=== PATIENT | female | born 1970 | race Caucasian/White ===

== ENCOUNTER 2016-08-15 19:37 | Emergency (ER) | payer MEDICAID ==
[~2016-08-15] VITALS: Ht 165.1 cm; Wt 96.0 kg
[~2016-08-15 19:37] MED LIST: ALBU6.7H2 IH; BUSP30TA2 PO; CITA20TA19 PO; CYCL5TAB PO; FAMO40TA7 PO; FERR-63 PO; LISI-604 PO; LORA10TA7 PO; OLAN10TA3 PO
[2016-08-16] MEDS ORDERED: KETOROLAC 30MG/ML VIAL IV STA (01:52)
[2016-08-16] MEDS ORDERED: MAGNESIUM/ALUMINUM HYDROXIDE/SIMETHICONE 30ML UDC PO STA (01:52)
[2016-08-16] MEDS ORDERED: VISCOUS LIDOCAINE 2% 15 ML UDC PO STA (01:52)
[2016-08-16] MEDS ORDERED: DICYCLOMINE 10 MG/5 ML ORAL SYR PO STA (01:52)
[2016-08-16] MEDS ORDERED: SODIUM CHLORIDE 0.9% 500 ML IV ONE (02:00)
[2016-08-16] MEDS ORDERED: LORAZEPAM 2MG/ML CPJ IV ONE (02:30)
[2016-08-16] MEDS ORDERED: ONDANSETRON HCL 4MG/2ML VIAL IV ONE (02:30)
[2016-08-16 02:31] LABS: CLARITY URINE CLOUDY (CLEAR); COLOR URINE ORANGE (YELLOW); GLUCOSE URINE NEGATIVE (NEGATIVE); KETONES URINE TRACE (NEGATIVE); LEUKOCYTE ESTERASE URINE 1+ (NEGATIVE); NITRITE URINE POSITIVE (NEGATIVE); OCCULT BLOOD URINE NEGATIVE (NEGATIVE); PROTEIN URINE 1+ (NEGATIVE)
[2016-08-16 02:36] LABS: CHLORIDE 100 mEq/L (98-107); INDEX HEMOLYSI 1 (1-3); INDEX ICTERIC 1 (1-4); INDEX LIPEMIC 1 (1-3)
[2016-08-16 02:43] LABS: BASOPHILS % 1.1 % (0.0-2.0); EOSINOPHILS % 1.2 % (0.0-5.0); HEMATOCRIT. 27.7 % (36.0-48.0); HEMOGLOBIN. 8.8 g/dL (12.0-16.0); LYMPHOCYTES % 22.4 % (20.0-50.0); MEAN CORPUSCULAR HEMOGLOBIN 27.7 pg (28.0-32.0); MEAN CORPUSCULAR HGB CONC 31.9 g/dL (31.0-37.0); MEAN CORPUSCULAR VOLUME 86.8 fL (81.0-99.0); MEAN PLATELET VOLUME 7.1 fl (7.4-10.4); MONOCYTES % 11.2 % (2.0-8.0); NEUTROPHILS % 64.1 % (40.0-76.0); PLATELET 200 x1000/uL (130-400); RED BLOOD CELL COUNT 3.18 mill/uL (4.2-5.4); RED CELL DISTRIBUTION WIDTH 17.8 % (11.6-14.6); WHITE BLOOD COUNT 7.1 x1000/uL (4.5-11.0)
[2016-08-16 02:45] LABS: ALANINE AMINOTRANSFERASE 28 IU/L (13-61); ALBUMIN 3.1 g/dL (3.4-5.0); ANION GAP 14; CALCIUM 8.6 mg/dL (8.5-10.1); CARBON DIOXIDE 29 mEq/L (21-32); LIPASE 84 IU/L (73-393); UREA NITROGEN BLOOD 7 mg/dL (7-21); eGFR > 60 mL/min (>60)
[2016-08-16 02:57] LABS: BACTERIA URINE 2+; RBC URINE 0-2 /hpf (0-2); SQUAMOUS EPITHELIAL CELL URINE 2+ /lpf (RARE/1+)
[2016-08-16 02:58] LABS: MUCUS URINE 2+ /lpf (< = 2+)
[2016-08-16 03:00] LABS: *AMPHETAMINES SCREEN URINE NEGATIVE (NEGATIVE); *BARBITURATES SCREEN URINE NEGATIVE (NEGATIVE); *COCAINE SCREEN URINE NEGATIVE (NEGATIVE); CANNABINOID URINE SCREEN NEGATIVE (NEGATIVE); METHADONE URINE SCREEN NEGATIVE (NEGATIVE); OPIATES URINE SCREEN NEGATIVE (NEGATIVE); PHENCYCLIDINE URINE SCREEN NEGATIVE (NEGATIVE)
[2016-08-16 03:11] LABS: *BENZODIAZEPINES SCREEN URINE PRESUMTIVE POSITIVE (NEGATIVE); ECSTASY MDMA SCREEN URINE CONF.TEST INDICATED (NEGATIVE)
[2016-08-16] MEDS ORDERED: METOCLOPRAMIDE HCL 10MG/2ML VIAL IV ONE (04:30)
[2016-08-16] MEDS ORDERED: MORPHINE SULFATE 2 MG/ML CPJ (NOT FOR IM USE) IV ONE (04:30)
[2016-08-16 04:35] VITALS: BP 106/65
== END 2016-08-16 05:59 | disposition home or self-care (01) ==
LOC: ER 19:37
DX: R10.9 Unspecified abdominal pain (principal); F10.20 Alcohol dependence, uncomplicated; F10.10 Alcohol abuse, uncomplicated; F19.10 Other psychoactive substance abuse, uncomplicated; Y90.8 Blood alcohol level of 240 mg/100 ml or more; J45.909 Unspecified asthma, uncomplicated; I10 Essential (primary) hypertension; Z90.49 Acquired absence of other specified parts of digestive tract
CPT/HCPCS: 36415; 80053; 80305; 81001; 81025; 83690; 85025; 96361; 96374; 96375; 99284; J1885; J2060; J2270; J2405; J2765; J7030; J7040; Z7610

== ENCOUNTER 2016-09-10 16:31 | Emergency (ER) | payer MEDICAID ==
[~2016-09-10] VITALS: Ht 170.2 cm; Wt 75.0 kg
[2016-09-10] MEDS ORDERED: SODIUM CHLORIDE 0.9% 1,000 ML IV ONE (18:12)
[2016-09-10 18:45] LABS: BASOPHILS % 1.2 % (0.0-2.0); EOSINOPHILS % 5.1 % (0.0-5.0); HEMATOCRIT. 25.6 % (36.0-48.0); HEMOGLOBIN. 8.1 g/dL (12.0-16.0); LYMPHOCYTES % 39.9 % (20.0-50.0); MEAN CORPUSCULAR HEMOGLOBIN 25.6 pg (28.0-32.0); MEAN CORPUSCULAR HGB CONC 31.6 g/dL (31.0-37.0); MEAN CORPUSCULAR VOLUME 80.9 fL (81.0-99.0); MEAN PLATELET VOLUME 7.1 fl (7.4-10.4); MONOCYTES % 6.7 % (2.0-8.0); NEUTROPHILS % 47.1 % (40.0-76.0); PLATELET 204 x1000/uL (130-400); RED BLOOD CELL COUNT 3.16 mill/uL (4.2-5.4); RED CELL DISTRIBUTION WIDTH 19.6 % (11.6-14.6); WHITE BLOOD COUNT 6.6 x1000/uL (4.5-11.0)
[2016-09-10 18:56] LABS: ALANINE AMINOTRANSFERASE 27 IU/L (13-61); AMMONIA 36 uMol/L (<32); ANION GAP 18; CALCIUM 8.2 mg/dL (8.5-10.1); CARBON DIOXIDE 27 mEq/L (21-32); CHLORIDE 104 mEq/L (98-107); ETHANOL BLOOD 168 mg/dL; INDEX HEMOLYSI 1 (1-3); INDEX ICTERIC 1 (1-4); INDEX LIPEMIC 1 (1-3); UREA NITROGEN BLOOD 7 mg/dL (7-21)
[2016-09-10 18:58] LABS: ACETAMINOPHEN < 2 ug/mL (10-30); eGFR > 60 mL/min (>60)
[2016-09-10 19:55] LABS: *AMPHETAMINES SCREEN URINE NEGATIVE (NEGATIVE); *BARBITURATES SCREEN URINE NEGATIVE (NEGATIVE); *COCAINE SCREEN URINE NEGATIVE (NEGATIVE); CANNABINOID URINE SCREEN NEGATIVE (NEGATIVE); ECSTASY MDMA SCREEN URINE NEGATIVE (NEGATIVE); METHADONE URINE SCREEN NEGATIVE (NEGATIVE); OPIATES URINE SCREEN NEGATIVE (NEGATIVE); PHENCYCLIDINE URINE SCREEN NEGATIVE (NEGATIVE)
[2016-09-10 19:58] LABS: *BENZODIAZEPINES SCREEN URINE PRESUMTIVE POSITIVE (NEGATIVE)
[2016-09-10] MEDS ORDERED: LORAZEPAM 2MG/ML CPJ IV ONE (22:45)
[2016-09-10] MEDS ORDERED: ACETAMINOPHEN 325MG TABLET PO ONE (23:30)
[2016-09-11] MEDS ORDERED: LORAZEPAM 2MG/ML CPJ IV ONE (07:45)
[2016-09-11 11:06] VITALS: BP 149/91
== END 2016-09-11 11:19 | disposition home or self-care (01) ==
LOC: ER 17:12
DX: F10.129 Alcohol abuse with intoxication, unspecified (principal); R45.851 Suicidal ideations; R10.9 Unspecified abdominal pain; F41.9 Anxiety disorder, unspecified; F31.9 Bipolar disorder, unspecified; F14.10 Cocaine abuse, uncomplicated; F12.10 Cannabis abuse, uncomplicated; Z79.899 Other long term (current) drug therapy
CPT/HCPCS: 36415; 80053; 80305; 80307; 80329; 81025; 82140; 85025; 96361; 96374; 96376; 99284; G0482; J2060; J7030; Z7610

== ENCOUNTER 2017-01-28 10:22 | Inpatient (IN) | payer MEDICAID ==
[~2017-01-28] VITALS: Ht 152.4 cm; Wt 103.0 kg
[2017-01-28] MEDS ORDERED: MORPHINE SULFATE 4 MG/ML CPJ (NOT FOR IM USE) IV STA (13:38)
[2017-01-28] MEDS ORDERED: SODIUM CHLORIDE 0.9% 1,000 ML IV ONE (13:38)
[2017-01-28] MEDS ORDERED: ONDANSETRON HCL 4MG/2ML VIAL IV STA (13:38)
[2017-01-28 14:04] LABS: BASOPHILS % 1.1 % (0.0-2.0); EOSINOPHILS % 0.7 % (0.0-5.0); HEMATOCRIT. 25.4 % (36.0-48.0); LYMPHOCYTES % 11.5 % (20.0-50.0); MEAN CORPUSCULAR HEMOGLOBIN 24.2 pg (28.0-32.0); MEAN CORPUSCULAR VOLUME 76.5 fL (81.0-99.0); MEAN PLATELET VOLUME 6.9 fl (7.4-10.4); MONOCYTES % 7.4 % (2.0-8.0); NEUTROPHILS % 79.3 % (40.0-76.0); PLATELET 247 x1000/uL (130-400); RED BLOOD CELL COUNT 3.32 mill/uL (4.2-5.4); RED CELL DISTRIBUTION WIDTH 21.6 % (11.6-14.6)
[2017-01-28 14:09] LABS: CHLORIDE 94 mEq/L (98-107); INR 1.1; PROTHROMBIN TIME 11.7 sec (9.4-11.6)
[2017-01-28 14:11] LABS: CARBON DIOXIDE 27 mEq/L (21-32)
[2017-01-28 14:14] LABS: HCG SCREEN NEGATIVE
[2017-01-28] MEDS ORDERED: LORAZEPAM 2MG/ML CPJ IV ONE (14:30)
[2017-01-28 15:17] LABS: CLARITY URINE CLOUDY (CLEAR); COLOR URINE ORANGE (YELLOW); GLUCOSE URINE NEGATIVE (NEGATIVE); KETONES URINE NEGATIVE (NEGATIVE); LEUKOCYTE ESTERASE URINE NEGATIVE (NEGATIVE); NITRITE URINE NEGATIVE (NEGATIVE); OCCULT BLOOD URINE 3+ (NEGATIVE); PROTEIN URINE NEGATIVE (NEGATIVE); SPECIFIC GRAVITY URINE 1.011 (1.005-1.030); UROBILINOGEN URINE 0.2 E.U./dL (0.2-1.0)
[2017-01-28] MEDS ORDERED: KETOROLAC 30MG/ML VIAL IV ONE (16:00)
[2017-01-28] MEDS ORDERED: ACETAMINOPHEN 325MG TABLET PO PRN (17:30)
[2017-01-28] MEDS ORDERED: DIPHENHYDRAMINE 50MG/ML VIAL IV PRN (17:30)
[2017-01-28] MEDS ORDERED: IPRATROPIUM/ALBUTEROL 0.5-3(2.5)MG/3ML NEB INH PRN (17:30)
[2017-01-28] MEDS ORDERED: CLONIDINE 0.1MG TABLET PO PRN (17:30)
[2017-01-28] MEDS ORDERED: POTASSIUM CHLORIDE INJ 40 MEQ in DEXT 5% WATER 500 ML IV NR (18:00)
[2017-01-28 20:00] VITALS: BP 130/86
[2017-01-28 20:11] VITALS: BP 130/86
[2017-01-28] MEDS ORDERED: BACL-141 PO (20:26)
[2017-01-28] MEDS: LORAZEPAM 2MG/ML CPJ IV PRN (21:59)
[2017-01-28] MEDS: ONDANSETRON HCL 4MG/2ML VIAL IV PRN (22:00)
[2017-01-28] MEDS: MORPHINE SULFATE 4 MG/ML CPJ (NOT FOR IM USE) IV PRN (22:00)
[2017-01-28] MEDS: CHLORDIAZEPOXIDE 25MG CAPSULE PO SCH (22:01)
[2017-01-29] VITALS: BP 139/91
[2017-01-29] MEDS: ONDANSETRON HCL 4MG/2ML VIAL IV PRN ×2 (03:22→09:46)
[2017-01-29] MEDS: MORPHINE SULFATE 4 MG/ML CPJ (NOT FOR IM USE) IV PRN ×4 (03:25→20:02)
[2017-01-29] MEDS: LORAZEPAM 2MG/ML CPJ IV PRN ×3 (03:27→21:08)
[2017-01-29 04:00] VITALS: BP 139/97
[2017-01-29] MEDS: HYDROCODONE/ACETAMINOPHEN 5/325MG TABLET PO PRN ×3 (05:57→21:18)
[2017-01-29] MEDS: CHLORDIAZEPOXIDE 25MG CAPSULE PO SCH ×3 (05:57→21:07)
[2017-01-29 07:30] LABS: CARBON DIOXIDE 26 mEq/L (21-32); CHLORIDE 97 mEq/L (98-107); HDL CHOLESTEROL 15 mg/dL (40-59); LDL CHOLESTEROL 79 mg/dL (5-100)
[2017-01-29 08:00] VITALS: BP 133/67
[2017-01-29 08:00] LABS: BASOPHILS % 0.4 % (0.0-2.0); EOSINOPHILS % 1.8 % (0.0-5.0); HEMATOCRIT. 27.3 % (36.0-48.0); HEMOGLOBIN. 8.4 g/dL (12.0-16.0); LYMPHOCYTES % 11.3 % (20.0-50.0); MEAN CORPUSCULAR HEMOGLOBIN 23.8 pg (28.0-32.0); MEAN CORPUSCULAR VOLUME 77.2 fL (81.0-99.0); MEAN PLATELET VOLUME 7.6 fl (7.4-10.4); MONOCYTES % 6.4 % (2.0-8.0); NEUTROPHILS % 80.1 % (40.0-76.0); PLATELET 300 x1000/uL (130-400); RED BLOOD CELL COUNT 3.53 mill/uL (4.2-5.4); RED CELL DISTRIBUTION WIDTH 21.8 % (11.6-14.6)
[2017-01-29 12:00] VITALS: BP 130/87
[2017-01-29 16:00] VITALS: BP 152/87
[2017-01-30] VITALS: BP 150/93
[2017-01-30] MEDS: MORPHINE SULFATE 4 MG/ML CPJ (NOT FOR IM USE) IV PRN ×4 (00:50→19:42)
[2017-01-30] MEDS: LORAZEPAM 2MG/ML CPJ IV PRN ×4 (01:22→19:41)
[2017-01-30] MEDS: HYDROCODONE/ACETAMINOPHEN 5/325MG TABLET PO PRN ×4 (01:22→15:54)
[2017-01-30 04:00] VITALS: BP 135/88
[2017-01-30] MEDS: CHLORDIAZEPOXIDE 25MG CAPSULE PO SCH ×3 (05:45→22:10)
[2017-01-30] MEDS: ONDANSETRON HCL 4MG/2ML VIAL IV PRN (06:25)
[2017-01-30 07:34] LABS: BASOPHILS % 0.4 % (0.0-2.0); EOSINOPHILS % 3.1 % (0.0-5.0); HEMATOCRIT. 25.2 % (36.0-48.0); LYMPHOCYTES % 13.7 % (20.0-50.0); MEAN CORPUSCULAR HEMOGLOBIN 24.6 pg (28.0-32.0); MEAN CORPUSCULAR VOLUME 77.4 fL (81.0-99.0); MEAN PLATELET VOLUME 7.6 fl (7.4-10.4); MONOCYTES % 9.5 % (2.0-8.0); NEUTROPHILS % 73.3 % (40.0-76.0); PLATELET 231 x1000/uL (130-400); RED BLOOD CELL COUNT 3.26 mill/uL (4.2-5.4); RED CELL DISTRIBUTION WIDTH 21.3 % (11.6-14.6)
[2017-01-30 08:31] LABS: CARBON DIOXIDE 28 mEq/L (21-32); CHLORIDE 98 mEq/L (98-107)
[2017-01-30 12:11] VITALS: BP 120/72
[2017-01-30] MEDS: PANTOPRAZOLE SODIUM 40 MG/VIAL IV SCH (15:53)
[2017-01-30 16:00] VITALS: BP 130/70
[2017-01-30 20:00] VITALS: BP 136/82
[2017-01-31] VITALS: BP 125/72
[2017-01-31] MEDS: LORAZEPAM 2MG/ML CPJ IV PRN ×5 (00:44→23:58)
[2017-01-31] MEDS: MORPHINE SULFATE 4 MG/ML CPJ (NOT FOR IM USE) IV PRN ×5 (00:45→22:23)
[2017-01-31 04:00] VITALS: BP 133/78
[2017-01-31] MEDS: CHLORDIAZEPOXIDE 25MG CAPSULE PO SCH ×3 (06:14→22:13)
[2017-01-31 07:27] LABS: CHLORIDE 97 mEq/L (98-107)
[2017-01-31 07:50] LABS: CARBON DIOXIDE 26 mEq/L (21-32)
[2017-01-31 07:52] LABS: BASOPHILS % 0.8 % (0.0-2.0); EOSINOPHILS % 4.8 % (0.0-5.0); HEMATOCRIT. 23.6 % (36.0-48.0); HEMOGLOBIN. 7.3 g/dL (12.0-16.0); MEAN CORPUSCULAR HEMOGLOBIN 24.3 pg (28.0-32.0); MEAN CORPUSCULAR VOLUME 78.3 fL (81.0-99.0); MEAN PLATELET VOLUME 7.9 fl (7.4-10.4); MONOCYTES % 8.3 % (2.0-8.0); NEUTROPHILS % 68.1 % (40.0-76.0); PLATELET 216 x1000/uL (130-400); RED BLOOD CELL COUNT 3.01 mill/uL (4.2-5.4); RED CELL DISTRIBUTION WIDTH 21.3 % (11.6-14.6)
[2017-01-31 08:00] VITALS: BP 145/86
[2017-01-31] MEDS: ONDANSETRON HCL 4MG/2ML VIAL IV PRN (08:38)
[2017-01-31] MEDS: PANTOPRAZOLE SODIUM 40 MG/VIAL IV SCH (08:38)
[2017-01-31] MEDS: HYDROCODONE/ACETAMINOPHEN 5/325MG TABLET PO PRN ×3 (08:39→19:20)
[2017-01-31] MEDS ORDERED: POTASSIUM CHLORIDE 20MEQ TABLET SR PO SCH (10:15)
[2017-01-31 12:00] VITALS: BP 145/92
[2017-01-31 16:00] VITALS: BP 140/83
[2017-01-31 20:00] VITALS: BP 149/83
[2017-02-01] VITALS (11 sets, daily range): BP systolic 121–152; BP diastolic 70–97
[2017-02-01] MEDS: HYDROCODONE/ACETAMINOPHEN 5/325MG TABLET PO PRN ×2 (01:27→18:44)
[2017-02-01 07:59] LABS: BASOPHILS % 0.6 % (0.0-2.0); HEMATOCRIT. 23.3 % (36.0-48.0); HEMOGLOBIN. 7.5 g/dL (12.0-16.0); MEAN CORPUSCULAR HEMOGLOBIN 25.1 pg (28.0-32.0); MEAN CORPUSCULAR VOLUME 78.4 fL (81.0-99.0); MEAN PLATELET VOLUME 7.7 fl (7.4-10.4); MONOCYTES % 8.6 % (2.0-8.0); NEUTROPHILS % 59.8 % (40.0-76.0); PLATELET 245 x1000/uL (130-400); RED BLOOD CELL COUNT 2.98 mill/uL (4.2-5.4)
[2017-02-01 08:07] LABS: CARBON DIOXIDE 27 mEq/L (21-32); CHLORIDE 100 mEq/L (98-107)
[2017-02-01] MEDS: PANTOPRAZOLE SODIUM 40 MG/VIAL IV SCH (08:27)
[2017-02-01] MEDS: LORAZEPAM 2MG/ML CPJ IV PRN ×3 (08:28→20:49)
[2017-02-01] MEDS: MORPHINE SULFATE 4 MG/ML CPJ (NOT FOR IM USE) IV PRN ×3 (11:03→20:49)
[2017-02-01 14:16] LABS: HEMATOCRIT 23.2 % (36.0-48.0); HEMOGLOBIN 7.1 g/dL (12.0-16.0); MEAN CORPUSCULAR HEMOGLOBIN 24.3 pg (28.0-32.0); PLATELET 241 x1000/uL (130-400); RED BLOOD CELL COUNT 2.94 mill/uL (4.2-5.4); RED CELL DISTRIBUTION WIDTH 21.7 % (11.6-14.6)
[2017-02-01] MEDS: CHLORDIAZEPOXIDE 25MG CAPSULE PO SCH ×2 (14:18→21:48)
[2017-02-01] MEDS: ONDANSETRON HCL 4MG/2ML VIAL IV PRN (16:20)
[2017-02-01 19:32] LABS: CARCINO EMBRYONIC ANTIGEN 1.8 ng/ml
[2017-02-02] VITALS (10 sets, daily range): BP systolic 122–150; BP diastolic 81–90
[2017-02-02] MEDS: ONDANSETRON HCL 4MG/2ML VIAL IV PRN ×2 (01:24→09:28)
[2017-02-02] MEDS: MORPHINE SULFATE 4 MG/ML CPJ (NOT FOR IM USE) IV PRN ×3 (01:25→13:46)
[2017-02-02] MEDS: LORAZEPAM 2MG/ML CPJ IV PRN ×3 (04:06→13:45)
[2017-02-02] MEDS: HYDROCODONE/APAP 7.5/325MG 1 TAB TABLET PO PRN ×2 (04:06→11:47)
[2017-02-02 05:14] LABS: BASOPHILS % 1.1 % (0.0-2.0); EOSINOPHILS % 5.9 % (0.0-5.0); HEMATOCRIT. 28.6 % (36.0-48.0); LYMPHOCYTES % 23.6 % (20.0-50.0); MEAN CORPUSCULAR HEMOGLOBIN 25.2 pg (28.0-32.0); MEAN PLATELET VOLUME 7.2 fl (7.4-10.4); MONOCYTES % 8.2 % (2.0-8.0); NEUTROPHILS % 61.2 % (40.0-76.0); PLATELET 267 x1000/uL (130-400); RED BLOOD CELL COUNT 3.58 mill/uL (4.2-5.4); RED CELL DISTRIBUTION WIDTH 19.7 % (11.6-14.6)
[2017-02-02] MEDS: CHLORDIAZEPOXIDE 25MG CAPSULE PO SCH ×2 (05:44→13:44)
[2017-02-02 06:02] LABS: CARBON DIOXIDE 28 mEq/L (21-32); CHLORIDE 101 mEq/L (98-107)
[2017-02-02] MEDS ORDERED: FAMOTIDINE 20MG TABLET PO SCH (09:00)
== END 2017-02-02 14:30 | disposition home or self-care (01) | DRG 282 ==
LOC: ER 13:14 → 6EST 15:35 → EDBEDREQ 15:51 → ENRESERV 17:29
PROVIDERS: ADMIT Internal Medicine; ATTEND Internal Medicine
PROC: 30233N1 Transfusion of Nonautologous Red Blood Cells into Peripheral Vein, Percutaneous Approach (ICD-10-PCS; principal; 2017-02-01)
DX: K85.90 Acute pancreatitis without necrosis or infection, unspecified (principal); R65.11 Systemic inflammatory response syndrome (SIRS) of non-infectious origin with acute organ dysfunction; D68.9 Coagulation defect, unspecified; F20.9 Schizophrenia, unspecified; Z68.41 Body mass index [BMI] 40.0-44.9, adult; E44.1 Mild protein-calorie malnutrition; I10 Essential (primary) hypertension; N39.0 Urinary tract infection, site not specified; F10.10 Alcohol abuse, uncomplicated; D50.9 Iron deficiency anemia, unspecified; E87.6 Hypokalemia; E66.9 Obesity, unspecified; N93.9 Abnormal uterine and vaginal bleeding, unspecified; F31.9 Bipolar disorder, unspecified; R63.4 Abnormal weight loss; E56.1 Deficiency of vitamin K; D72.829 Elevated white blood cell count, unspecified; M54.5 Low back pain; D25.9 Leiomyoma of uterus, unspecified; J45.909 Unspecified asthma, uncomplicated; B19.20 Unspecified viral hepatitis C without hepatic coma; F41.9 Anxiety disorder, unspecified; Z79.899 Other long term (current) drug therapy; Z90.49 Acquired absence of other specified parts of digestive tract
CPT/HCPCS: 36415; 76705; 76830; 76856; 80048; 80053; 80061; 81001; 81025; 82378; 82607; 82728; 83540; 83550; 83690; 84443; 84703; 85025; 85027; 85044; 85610; 85651; 86850; 86900; 86920; 87040; 87186; 96361; 96374; 96375; 99285; C1893; C9113; G0482; J1885; J2060; J2270; J2405; J3480; J7030; J7040; J7060; P9016

== ENCOUNTER 2017-02-18 02:12 | Emergency (ER) | payer MEDICAID ==
[~2017-02-18] VITALS: Ht 165.1 cm; Wt 73.0 kg
[~2017-02-18 02:12] MED LIST changes: +BACL-141 PO
[2017-02-18 08:55] VITALS: BP 133/68
== END 2017-02-18 11:37 | disposition home or self-care (01) ==
LOC: ER 02:13
DX: L21.9 Seborrheic dermatitis, unspecified (principal); F20.9 Schizophrenia, unspecified; I12.9 Hypertensive chronic kidney disease with stage 1 through stage 4 chronic kidney disease, or unspecified chronic kidney disease; N18.9 Chronic kidney disease, unspecified; F41.9 Anxiety disorder, unspecified; Z86.19 Personal history of other infectious and parasitic diseases; Z87.891 Personal history of nicotine dependence; Z90.49 Acquired absence of other specified parts of digestive tract
CPT/HCPCS: 99283

== ENCOUNTER 2017-11-23 12:01 | Emergency (ER) | payer MEDICAID ==
[~2017-11-23] VITALS: Ht 165.1 cm; Wt 78.0 kg
[~2017-11-23 12:01] MED LIST changes: -ALBU6.7H2 IH; +ALBU6.7H9 IH
[2017-11-23] MEDS ORDERED: SODIUM CHLORIDE 0.9% 1,000 ML IV ONE (14:15)
[2017-11-23 14:31] LABS: CLARITY URINE CLOUDY (CLEAR); COLOR URINE YELLOW (YELLOW); KETONES URINE NEGATIVE (NEGATIVE); LEUKOCYTE ESTERASE URINE 3+ (NEGATIVE); NITRITE URINE NEGATIVE (NEGATIVE); OCCULT BLOOD URINE NEGATIVE (NEGATIVE); PH URINE 6.5 (4.5-8.0); PROTEIN URINE NEGATIVE (NEGATIVE); SPECIFIC GRAVITY URINE 1.021 (1.005-1.030); UROBILINOGEN URINE 0.2 E.U./dL (0.2-1.0)
[2017-11-23 14:49] LABS: BASOPHILS % 0.9 % (0.0-2.0); EOSINOPHILS % 2.4 % (0.0-5.0); HEMATOCRIT. 30.8 % (36.0-48.0); HEMOGLOBIN. 9.8 g/dL (12.0-16.0); LYMPHOCYTES % 24.7 % (20.0-50.0); MEAN CORPUSCULAR HEMOGLOBIN 24.2 pg (28.0-32.0); MEAN CORPUSCULAR VOLUME 75.9 fL (81.0-99.0); MEAN PLATELET VOLUME 7.3 fl (7.4-10.4); MONOCYTES % 5.2 % (2.0-8.0); NEUTROPHILS % 66.8 % (40.0-76.0); PLATELET 259 x1000/uL (130-400); RED BLOOD CELL COUNT 4.06 mill/uL (4.2-5.4); RED CELL DISTRIBUTION WIDTH 18.8 % (11.6-14.6)
[2017-11-23 14:55] LABS: CHLORIDE 105 mEq/L (98-107)
[2017-11-23 14:56] LABS: INR 1.2; PARTIAL THROMBOPLASTIN TIME 25.1 sec (23.4-31.0); PROTHROMBIN TIME 12.3 sec (9.4-11.6)
[2017-11-23 14:57] LABS: HCG SCREEN NEGATIVE
[2017-11-23 14:59] LABS: ETHANOL BLOOD 281 mg/dL
[2017-11-23 16:41] VITALS: BP 128/74
== END 2017-11-23 17:46 | disposition home or self-care (01) ==
LOC: ER 13:13
DX: F10.129 Alcohol abuse with intoxication, unspecified (principal); Y90.8 Blood alcohol level of 240 mg/100 ml or more; N39.0 Urinary tract infection, site not specified; R73.9 Hyperglycemia, unspecified; A59.9 Trichomoniasis, unspecified; D64.9 Anemia, unspecified; R74.0 Nonspecific elevation of levels of transaminase and lactic acid dehydrogenase [LDH]; I10 Essential (primary) hypertension; F12.90 Cannabis use, unspecified, uncomplicated; F31.9 Bipolar disorder, unspecified
CPT/HCPCS: 36415; 71045; 80053; 81003; 83690; 84484; 84703; 85025; 85610; 85730; 93005; 99285; G0482; J7030; Z7610

== ENCOUNTER 2018-06-06 18:18 | Emergency (ER) | payer MEDICAID ==
[~2018-06-06] VITALS: Ht 165.1 cm; Wt 99.5 kg
[2018-06-06 19:33] VITALS: BP 127/68
[2018-06-06 20:56] LABS: CLARITY URINE CLOUDY (CLEAR); COLOR URINE YELLOW (YELLOW); KETONES URINE NEGATIVE (NEGATIVE); LEUKOCYTE ESTERASE URINE TRACE (NEGATIVE); NITRITE URINE NEGATIVE (NEGATIVE); OCCULT BLOOD URINE NEGATIVE (NEGATIVE); PH URINE 5.5 (4.5-8.0); PROTEIN URINE NEGATIVE (NEGATIVE); SPECIFIC GRAVITY URINE 1.018 (1.005-1.030); UROBILINOGEN URINE 0.2 E.U./dL (0.2-1.0)
== END 2018-06-07 01:45 | disposition left against medical advice (07) ==
LOC: ER 18:18
DX: Z53.21 Procedure and treatment not carried out due to patient leaving prior to being seen by health care provider (principal)
CPT/HCPCS: 81025

== ENCOUNTER 2020-05-09 23:38 | Emergency (ER) | payer MEDICAID ==
[~2020-05-09] VITALS: Ht 167.6 cm; Wt 86.0 kg
[2020-05-10] MEDS ORDERED: SODIUM CHLORIDE 0.9% 1,000 ML IV ONE (00:30)
[2020-05-10 01:01] LABS: BG BASE EXCESS -0.1 mmol/L (-2.0-2.0); BG CARBOXYHEMOGLOBIN 0.6 % (0.5-1.5); BG DEOXYHEMOGLOBIN 4.6 % (0.0-5.0); BG FRACTION INSPIRED OXYGEN 21; BG HCO3 ACT 24.6 mmol/L (22.0-26.0); BG METHEMOGLOBIN 0.3 % (0.0-1.5); BG OXYGEN SATURATION 95.4 % (92.0-98.5); BG OXYHEMOGLOBIN 94.5 % (94.0-97.0); BG PCO2 40.2 mmHg (35.0-45.0); BG PH 7.404 (7.350-7.450); BG PO2 80.6 mmHg (75.0-100.0); BG SAMPLE SITE RIGHT RADIAL; BG TOTAL HEMOGLOBIN 14.2 g/dL (12.0-18.0); BG VENT MODE ROOM AIR
[2020-05-10 02:04] LABS: BASOPHILS % 0.8 % (0.0-2.0); EOSINOPHILS % 3.2 % (0.0-5.0); HEMATOCRIT. 40.8 % (36.0-48.0); HEMOGLOBIN. 14.3 g/dL (12.0-16.0); LYMPHOCYTES % 41.8 % (20.0-50.0); MEAN CORPUSCULAR HEMOGLOBIN 32.1 pg (28.0-32.0); MEAN CORPUSCULAR VOLUME 91.8 fL (81.0-99.0); MEAN PLATELET VOLUME 7.6 fl (7.4-10.4); MONOCYTES % 4.8 % (2.0-8.0); NEUTROPHILS % 49.4 % (40.0-76.0); PLATELET 228 x1000/uL (130-400); RED BLOOD CELL COUNT 4.45 mill/uL (4.2-5.4); RED CELL DISTRIBUTION WIDTH 11.9 % (11.6-14.6)
[2020-05-10 02:11] LABS: CHLORIDE 99 mEq/L (98-107)
[2020-05-10 02:15] LABS: ETHANOL BLOOD 113 mg/dL
[2020-05-10 03:58] LABS: CLARITY URINE CLEAR (CLEAR); COLOR URINE YELLOW (YELLOW); KETONES URINE NEGATIVE (NEGATIVE); LEUKOCYTE ESTERASE URINE 2+ (NEGATIVE); NITRITE URINE POSITIVE (NEGATIVE); OCCULT BLOOD URINE NEGATIVE (NEGATIVE); PROTEIN URINE NEGATIVE (NEGATIVE); SPECIFIC GRAVITY URINE 1.011 (1.005-1.030); UROBILINOGEN URINE 0.2 E.U./dL (0.2-1.0)
[2020-05-10 05:20] LABS: *AMPHETAMINES SCREEN URINE PRESUMTIVE POSITIVE (NEGATIVE); *BARBITURATES SCREEN URINE NEGATIVE (NEGATIVE); *BENZODIAZEPINES SCREEN URINE NEGATIVE (NEGATIVE); *COCAINE SCREEN URINE NEGATIVE (NEGATIVE); METHADONE URINE SCREEN NEGATIVE (NEGATIVE)
[2020-05-10 05:21] LABS: CANNABINOID URINE SCREEN NEGATIVE (NEGATIVE); OPIATES URINE SCREEN NEGATIVE (NEGATIVE); PHENCYCLIDINE URINE SCREEN NEGATIVE (NEGATIVE)
[2020-05-10] MEDS ORDERED: POTASSIUM CHLORIDE 20MEQ TABLET SR PO SCH (05:30)
[2020-05-10 05:51] VITALS: BP 115/84
== END 2020-05-10 05:53 | disposition home or self-care (01) ==
LOC: ER 23:38
DX: R00.0 Tachycardia, unspecified (principal); J45.909 Unspecified asthma, uncomplicated; I10 Essential (primary) hypertension; F12.10 Cannabis abuse, uncomplicated; Z90.49 Acquired absence of other specified parts of digestive tract; Z79.899 Other long term (current) drug therapy
CPT/HCPCS: 36415; 36600; 70450; 71045; 80053; 80305; 80307; 80320; 80329; 81003; 82140; 82375; 82805; 85025; 93005; 96360; 99285; J7030; G0480

== ENCOUNTER 2021-01-06 23:32 | Emergency (ER) | payer MEDICAID, MEDICARE ==
[~2021-01-06] VITALS: Ht 165.1 cm; Wt 77.0 kg
[~2021-01-06 23:32] MED LIST changes: -LISI-604 PO; +LISI20TA31 PO
[2021-01-07] MEDS ORDERED: LISI20TA31 MT (01:33)
[2021-01-07] MEDS ORDERED: CHLO25CA10 MT (01:34)
[2021-01-07] MEDS ORDERED: CHLORDIAZEPOXIDE 25MG CAPSULE PO ONE ×2 (01:45→04:00)
[2021-01-07] MEDS ORDERED: CHLORDIAZEPOXIDE 5 MG CAPSULE PO NR ×2 (02:00→04:15)
[2021-01-07 03:00] VITALS: BP 121/79
[2021-01-07] MEDS ORDERED: ACETAMINOPHEN 325MG TABLET PO ONE (04:00)
== END 2021-01-07 06:19 | disposition home or self-care (01) ==
LOC: ER 23:32
DX: F33.9 Major depressive disorder, recurrent, unspecified (principal); R07.89 Other chest pain; Z20.822 Contact with and (suspected) exposure to COVID-19; J45.909 Unspecified asthma, uncomplicated; Z76.0 Encounter for issue of repeat prescription; F10.20 Alcohol dependence, uncomplicated; Y90.9 Presence of alcohol in blood, level not specified; I10 Essential (primary) hypertension; F20.9 Schizophrenia, unspecified
CPT/HCPCS: 93005; 99284; C9803; U0003; U0005

== ENCOUNTER 2023-03-21 14:44 | Inpatient (IN) | payer MEDICAID, MEDICARE ==
[~2023-03-21] VITALS: Ht 165.1 cm; Wt 92.5 kg
[~2023-03-21 14:44] MED LIST changes: +ALBU6.7H3 IH; -ALBU6.7H9 IH; +LISI20TA31 MT
[2023-03-21 15:56] LABS: HEMOGLOBIN. 8.4 g/dL (12.0-16.0); MEAN CORPUSCULAR HEMOGLOBIN 20.5 pg (28.0-32.0); MEAN CORPUSCULAR HGB CONC 30.1 g/dL (31.0-37.0); MEAN CORPUSCULAR VOLUME 67.9 fL (81.0-99.0); MEAN PLATELET VOLUME 7.2 fl (7.4-10.4); PLATELET 247 x1000/uL (130-400); RED BLOOD CELL COUNT 4.13 mill/uL (4.2-5.4); RED CELL DISTRIBUTION WIDTH 17.5 % (11.6-14.6); WHITE BLOOD COUNT 8.4 x1000/uL (4.5-11.0)
[2023-03-21 15:58] LABS: DIFFERENTIAL COMMENT 1
[2023-03-21 16:09] LABS: CHLORIDE 104 mEq/L (98-107); INDEX HEMOLYSI 1 (1-3); INDEX ICTERIC 1 (1-4); INDEX LIPEMIC 1 (1-3); POTASSIUM 3.4 mEq/L (3.5-5.1); SODIUM 139 mEq/L (136-145)
[2023-03-21 16:11] LABS: CALCIUM 8.8 mg/dL (8.5-10.1)
[2023-03-21 16:22] LABS: ANISOCYTOSIS 1+; HYPOCHROMASIA 2+; MICROCYTOSIS 3+; PLATELET ESTIMATE NORMAL
[2023-03-21 16:59] LABS: ALANINE AMINOTRANSFERASE 15 IU/L (13-61); ALBUMIN 3.4 g/dL (3.4-5.0); ASPARTATE AMINOTRANSFERASE 11 IU/L (15-37); BILIRUBIN TOTAL 0.3 mg/dL (0.1-1.0); CARBON DIOXIDE 27 mEq/L (21-32); CREATININE 0.7 mg/dL (0.6-1.3); GLUCOSE 128 mg/dL (70-105); PROTEIN TOTAL 7.5 g/dL (6.0-8.3); TROPONIN I HIGH SENSITIVITY 8 ng/L (<54); UREA NITROGEN BLOOD 14 mg/dL (7-21)
[2023-03-21] MEDS ORDERED: PREDNISONE 20MG TABLET PO STA (17:43)
[2023-03-21] MEDS ORDERED: ALBUTEROL (0.083%) 2.5MG/3ML NEB HHN STA ×2 (17:43→22:42)
[2023-03-21] MEDS ORDERED: PREDNISONE 20MG TABLET PO NR (17:44)
[2023-03-21 18:03] LABS: HCG SCREEN NEGATIVE
[2023-03-21] MEDS ORDERED: ALBUTEROL (0.083%) 2.5MG/3ML NEB ONE (20:22)
[2023-03-21 20:33] VITALS: PULSE 83; RESP 16; O2SAT 96
[2023-03-21 20:43] LABS: CLARITY URINE CLEAR (CLEAR); COLOR URINE YELLOW (YELLOW); GLUCOSE URINE NEGATIVE (NEGATIVE); KETONES URINE NEGATIVE (NEGATIVE); LEUKOCYTE ESTERASE URINE TRACE (NEGATIVE); NITRITE URINE NEGATIVE (NEGATIVE); OCCULT BLOOD URINE NEGATIVE (NEGATIVE); PH URINE 6.5 (4.5-8.0); PROTEIN URINE NEGATIVE (NEGATIVE); SPECIFIC GRAVITY URINE 1.015 (1.005-1.030); UROBILINOGEN URINE 0.2 E.U./dL (0.2-1.0)
[2023-03-21 20:45] LABS: BACTERIA URINE 1+; RBC URINE NONE SEEN /hpf (0-2); SQUAMOUS EPITHELIAL CELL URINE 2+ /lpf (RARE/1+); YEAST URINE NONE SEEN
[2023-03-21] MEDS ORDERED: IPRATROPIUM BROMIDE (0.02%) 0.5MG/2.5ML NEB HHN STA (22:42)
[2023-03-21 23:05] VITALS: PULSE 88; RESP 16; O2SAT 93
[2023-03-22] VITALS (8 sets, daily range): BP systolic 124–149; BP diastolic 69–86; PULSE 92–106; RESP 18–20; TEMP 97.7–98.7; O2SAT 99
[2023-03-22] MEDS ORDERED: MAGNESIUM 1 G PREMIX 100 ML IV ONE (02:15)
[2023-03-22] MEDS ORDERED: ONDANSETRON HCL 4MG/2ML INJ IV PRN (03:00)
[2023-03-22] MEDS ORDERED: DOCUSATE SODIUM 100MG CAPSULE PO PRN (03:00)
[2023-03-22] MEDS ORDERED: CLONIDINE 0.1MG TABLET PO PRN (03:00)
[2023-03-22] MEDS ORDERED: KCL 10MEQ/50ML PREMIX 50 ML IV NR (03:00)
[2023-03-22] MEDS ORDERED: ACETAMINOPHEN 325MG TABLET PO PRN ×2 (03:00)
[2023-03-22] MEDS ORDERED: IPRATROPIUM/ALBUTEROL 0.5-3(2.5)MG/3ML NEB HHN PRN ×3 (03:00→20:00)
[2023-03-22] MEDS ORDERED: MAGNESIUM/ALUMINUM HYDROXIDE/SIMETHICONE 30ML UDC PO PRN (03:00)
[2023-03-22] MEDS ORDERED: LURA20TA2 PO (03:06)
[2023-03-22] MEDS ORDERED: GABA-532 PO (03:06)
[2023-03-22] MEDS ORDERED: IPRATROPIUM BROMIDE (0.02%) 0.5MG/2.5ML NEB HHN PRN (04:00)
[2023-03-22 06:17] LABS: LACTIC ACID 6.6 mmol/L (0.4-2.0)
[2023-03-22] MEDS ORDERED: CEFTRIAXONE 2GM/50ML (ADDEASE) 50 ML IV SCH (06:45)
[2023-03-22] MEDS: METHYLPREDNISOLONE SOD SUCC 125MG/2ML (ACT-O-VIAL) IV SCH ×4 (06:56→21:05)
[2023-03-22 07:14] LABS: BG BASE EXCESS -0.7 mmol/L (-2.0-2.0); BG CARBOXYHEMOGLOBIN 0.8 % (0.5-1.5); BG HCO3 ACT 23.7 mmol/L (22.0-26.0); BG METHEMOGLOBIN 0.3 % (0.0-1.5); BG OXYGEN SATURATION 91.9 % (92.0-98.5); BG OXYHEMOGLOBIN 90.9 % (94.0-97.0); BG PCO2 37.6 mmHg (35.0-45.0); BG PH 7.417 (7.350-7.450); BG PO2 64.4 mmHg (75.0-100.0); BG SAMPLE SITE RIGHT RADIAL; BG TOTAL HEMOGLOBIN 9.5 g/dL (12.0-18.0); BG VENT MODE ROOM AIR
[2023-03-22] MEDS ORDERED: AZITHROMYCIN 500 MG in DEXT 5% WATER 250 ML IV SCH (08:00)
[2023-03-22] MEDS ORDERED: CEFTRIAXONE 2 G in DEXTROSE 5% WATER 50 ML IV SCH (08:00)
[2023-03-22 08:13] LABS: HEMATOCRIT. 27.9 % (36.0-48.0); HEMOGLOBIN. 8.6 g/dL (12.0-16.0); MEAN CORPUSCULAR HGB CONC 30.7 g/dL (31.0-37.0); MEAN CORPUSCULAR VOLUME 68.4 fL (81.0-99.0); PLATELET 254 x1000/uL (130-400); RED BLOOD CELL COUNT 4.08 mill/uL (4.2-5.4); RED CELL DISTRIBUTION WIDTH 17.6 % (11.6-14.6)
[2023-03-22] MEDS: GABAPENTIN 300MG CAPSULE PO SCH ×3 (08:29→17:18)
[2023-03-22] MEDS: LISINOPRIL 5MG TABLET PO SCH (08:29)
[2023-03-22] MEDS: GUAIFENESIN 600MG ER TABLET PO SCH ×2 (08:30→21:06)
[2023-03-22] MEDS: HYDROCHLOROTHIAZIDE 25MG TABLET PO SCH (08:30)
[2023-03-22] MEDS ORDERED: LURASIDONE HCL PO SCH (09:00)
[2023-03-22 09:03] LABS: DIFFERENTIAL COMMENT 1
[2023-03-22] MEDS: IPRATROPIUM/ALBUTEROL 0.5-3(2.5)MG/3ML NEB HHN SCH ×5 (09:15→21:36)
[2023-03-22 11:07] LABS: CHLORIDE 96 mEq/L (98-107); INDEX HEMOLYSI 1 (1-3); INDEX ICTERIC 1 (1-4); INDEX LIPEMIC 1 (1-3); POTASSIUM 3.9 mEq/L (3.5-5.1); SODIUM 133 mEq/L (136-145)
[2023-03-22 11:08] LABS: CALCIUM 8.9 mg/dL (8.5-10.1)
[2023-03-22 11:21] LABS: ALANINE AMINOTRANSFERASE 13 IU/L (13-61); ALBUMIN 3.4 g/dL (3.4-5.0); ASPARTATE AMINOTRANSFERASE 9 IU/L (15-37); BILIRUBIN TOTAL 0.2 mg/dL (0.1-1.0); CARBON DIOXIDE 25 mEq/L (21-32); CHOLESTEROL 152 mg/dL (<200); CREATININE 0.7 mg/dL (0.6-1.3); HDL CHOLESTEROL 51 mg/dL (40-59); IRON 19 ug/dL (50-175); LDL CHOLESTEROL 93 mg/dL (5-100); PROTEIN TOTAL 7.8 g/dL (6.0-8.3); T4 FREE 0.79 ng/dL (0.76-1.46); THYROID STIMULATING HORMONE 0.49 uIU/mL (0.36-3.74); TOTAL IRON BINDING CAPACITY 505 ug/dL (250-450); TRIGLYCERIDE 107 mg/dL (0-150); UREA NITROGEN BLOOD 16 mg/dL (7-21)
[2023-03-22 11:24] LABS: GLUCOSE 439 mg/dL (70-105)
[2023-03-22] MEDS ORDERED: DEXTROSE 50% WATER 50ML SYRINGE IV PRN (12:45)
[2023-03-22] MEDS: INSULIN LISPRO 100 UNITS/ML SUBCUT SCH ×5 (13:21→21:07)
[2023-03-22] MEDS: GUAIFENESIN 200MG/10ML SUGAR FREE UDC PO PRN (14:17)
[2023-03-22 16:23] LABS: *AMPHETAMINES SCREEN URINE NEGATIVE (NEGATIVE); *BARBITURATES SCREEN URINE NEGATIVE (NEGATIVE); *BENZODIAZEPINES SCREEN URINE NEGATIVE (NEGATIVE); *COCAINE SCREEN URINE NEGATIVE (NEGATIVE); CANNABINOID URINE SCREEN NEGATIVE (NEGATIVE); ECSTASY MDMA SCREEN URINE NEGATIVE (NEGATIVE); METHADONE URINE SCREEN NEGATIVE (NEGATIVE); OPIATES URINE SCREEN NEGATIVE (NEGATIVE); PHENCYCLIDINE URINE SCREEN NEGATIVE (NEGATIVE)
[2023-03-22] MEDS: BLOOD SUGAR DIAGNOSTIC STRIP TEST SCH ×2 (16:35→21:05)
[2023-03-22] MEDS ORDERED: INSULIN LISPRO 100 UNITS/ML SUBCUT SCH ×2 (17:10→17:40)
[2023-03-22] MEDS: BACLOFEN 10MG TABLET PO SCH (17:37)
[2023-03-22] MEDS: HYDROXYZINE 25MG TABLET PO SCH (17:37)
[2023-03-22 19:27] LABS: ANISOCYTOSIS 1+; HYPOCHROMASIA 2+; MICROCYTOSIS 3+; PLATELET ESTIMATE NORMAL
[2023-03-22] MEDS ORDERED: FAMOTIDINE 20MG TABLET PO SCH (21:00)
[2023-03-22] MEDS ORDERED: INSULIN GLARGINE 100 UNITS/ML SUBCUT SCH (22:00)
[2023-03-23] VITALS (8 sets, daily range): BP systolic 113–147; BP diastolic 63–89; PULSE 77–104; RESP 16–20; TEMP 97.5–98.6; O2SAT 96–97
[2023-03-23] MEDS ORDERED: LORAZEPAM 0.5MG TABLET PO NR (01:00)
[2023-03-23] MEDS: IPRATROPIUM/ALBUTEROL 0.5-3(2.5)MG/3ML NEB HHN SCH ×3 (01:27→13:17)
[2023-03-23] MEDS: METHYLPREDNISOLONE SOD SUCC 125MG/2ML (ACT-O-VIAL) IV SCH ×2 (06:07→13:38)
[2023-03-23] MEDS: INSULIN LISPRO 100 UNITS/ML SUBCUT SCH ×4 (06:09→12:47)
[2023-03-23] MEDS: BLOOD SUGAR DIAGNOSTIC STRIP TEST SCH ×2 (06:10→12:37)
[2023-03-23] MEDS: BACLOFEN 10MG TABLET PO SCH (08:49)
[2023-03-23] MEDS: HYDROCHLOROTHIAZIDE 25MG TABLET PO SCH (08:49)
[2023-03-23] MEDS: LISINOPRIL 5MG TABLET PO SCH (08:49)
[2023-03-23] MEDS: GUAIFENESIN 600MG ER TABLET PO SCH (08:49)
[2023-03-23] MEDS: HYDROXYZINE 25MG TABLET PO SCH (08:49)
[2023-03-23] MEDS: GABAPENTIN 300MG CAPSULE PO SCH ×2 (08:49→13:39)
[2023-03-23] MEDS ORDERED: FLUT1DIS2 INH (11:03)
[2023-03-23] MEDS ORDERED: DEXTL PO (11:03)
[2023-03-23] MEDS ORDERED: ALBU6.7H15 IH (11:08)
[2023-03-23] MEDS ORDERED: DIPH25TA62 MT (11:10)
[2023-03-23] MEDS: GUAIFENESIN 200MG/10ML SUGAR FREE UDC PO PRN (12:47)
[2023-03-23 16:21] LABS: FOLIC ACID (FOLATE) SERUM >20 ng/mL ng/mL (>5.38); VITAMIN B12 SERUM 622 pg/mL (211-911)
[2023-03-23 19:12] LABS: FERRITIN < 5 ng/mL (10-291)
== END 2023-03-23 16:00 | disposition home or self-care (01) | DRG 133 ==
LOC: ER 14:44 → MICUSO 03-22 02:05 → EDBEDREQTM 03-22 02:21 → EDBEDREQ 03-22 02:21 → 8WST 03-22 04:36
PROVIDERS: ADMIT Hospitalist; ATTEND Hospitalist
DX: J96.00 Acute respiratory failure, unspecified whether with hypoxia or hypercapnia (principal); J45.901 Unspecified asthma with (acute) exacerbation; I11.9 Hypertensive heart disease without heart failure; E87.6 Hypokalemia; Z20.822 Contact with and (suspected) exposure to COVID-19; F20.9 Schizophrenia, unspecified; F31.9 Bipolar disorder, unspecified; F41.9 Anxiety disorder, unspecified; Z90.49 Acquired absence of other specified parts of digestive tract; Z79.899 Other long term (current) drug therapy
CPT/HCPCS: 36415; 36600; 71045; 80053; 80061; 80305; 81003; 82375; 82607; 82728; 82746; 82805; 82962; 83036; 83540; 83550; 83605; 83880; 84145; 84439; 84443; 84484; 84703; 85025; 87426; 87804; 93005; 93306; 93970; 94640; 99285; C9803; J0456; J0696; J1815; J2930; J3475; J3480; J7060; J7512

== ENCOUNTER 2024-02-27 21:04 | Emergency (ER) | payer MEDICAID ==
[~2024-02-27] VITALS: Ht 167.6 cm; Wt 75.0 kg
[~2024-02-27 21:04] MED LIST changes: +ALBU18HF2 IH; -ALBU6.7H3 IH; +CHLO25CA10 MT; -CYCL5TAB PO; +DEXTL PO; +DIPH25TA62 MT; -FAMO40TA7 PO; +FLUT1DIS2 INH; +FOLI-43 PO; +LIDO1ADH71 TD; -LISI20TA31 MT; -LORA10TA7 PO; +LURA20TA2 PO; +LYR25 PO; +MULT-230 MT; +OMEP40CA20 MT; +POLY119P2 MT; +THIA100T72 PO
[2024-02-27 21:34] VITALS: BP 150/90; PULSE 92; RESP 18; TEMP 98.2; O2SAT 99
[2024-02-27] MEDS: LORAZEPAM 1MG TABLET PO ONE (23:00)
== END 2024-02-28 01:16 | disposition home or self-care (01) ==
LOC: ER 21:04
DX: F41.9 Anxiety disorder, unspecified (principal); J45.909 Unspecified asthma, uncomplicated; F31.9 Bipolar disorder, unspecified; F20.9 Schizophrenia, unspecified; I10 Essential (primary) hypertension; Z79.899 Other long term (current) drug therapy; Z79.51 Long term (current) use of inhaled steroids
CPT/HCPCS: 99283

== ENCOUNTER 2024-03-08 10:07 | Emergency (ER) | payer MEDICAID ==
[~2024-03-08] VITALS: Ht 162.6 cm; Wt 74.0 kg
[2024-03-08 10:09] VITALS: O2SAT 95
[2024-03-08] MEDS: MAGNESIUM 2 G PREMIX 50 ML IV ONE (11:10)
[2024-03-08 11:13] LABS: BASOPHILS % 0.6 % (0.0-2.0); EOSINOPHILS % 1.6 % (0.0-5.0); HEMATOCRIT. 38.3 % (36.0-48.0); HEMOGLOBIN. 12.4 g/dL (12.0-16.0); LYMPHOCYTES % 20.4 % (20.0-50.0); MEAN CORPUSCULAR HEMOGLOBIN 26.7 pg (28.0-32.0); MEAN CORPUSCULAR HGB CONC 32.2 g/dL (31.0-37.0); MEAN CORPUSCULAR VOLUME 82.8 fL (81.0-99.0); MEAN PLATELET VOLUME 8.7 fl (7.4-10.4); NEUTROPHILS % 71.4 % (40.0-76.0); PLATELET 206 x1000/uL (130-400); RED BLOOD CELL COUNT 4.63 mill/uL (4.2-5.4); RED CELL DISTRIBUTION WIDTH 16.5 % (11.6-14.6); WHITE BLOOD COUNT 8.6 x1000/uL (4.5-11.0)
[2024-03-08] MEDS: DIAZEPAM 5 MG/ML 2ML SYR IV ONE (11:19)
[2024-03-08] MEDS: ONDANSETRON HCL 4MG/2ML INJ IV ONE (11:19)
[2024-03-08 11:35] LABS: HCG SCREEN NEGATIVE
[2024-03-08 11:43] LABS: CHLORIDE 107 mEq/L (98-107); SODIUM 143 mEq/L (136-145)
[2024-03-08 11:44] LABS: CALCIUM 10.4 mg/dL (8.7-10.4)
[2024-03-08 11:49] LABS: CREATININE 1.2 mg/dL (0.6-1.0); GLUCOSE 115 mg/dL (70-105); UREA NITROGEN BLOOD 17 mg/dL (9-23)
[2024-03-08 11:50] LABS: ALBUMIN 4.4 g/dL (3.2-4.8)
[2024-03-08 11:51] LABS: ALANINE AMINOTRANSFERASE 26 IU/L (10-49); ASPARTATE AMINOTRANSFERASE 37 IU/L (<34); BILIRUBIN DIRECT 0.3 mg/dL (<=3.0); BILIRUBIN TOTAL 0.7 mg/dL (0.1-1.0); PROTEIN TOTAL 7.8 g/dL (6.0-8.3)
[2024-03-08 12:05] LABS: TROPONIN I HIGH SENSITIVITY 11 ng/L (3.0-34)
[2024-03-08 12:13] LABS: CARBON DIOXIDE 23 mEq/L (21-32)
[2024-03-08] MEDS ORDERED: IPRATROPIUM/ALBUTEROL 0.5-3(2.5)MG/3ML NEB NEB PRN (12:45)
[2024-03-08] MEDS ORDERED: MAGNESIUM/ALUMINUM HYDROXIDE/SIMETHICONE 30ML UDC PO PRN (12:45)
[2024-03-08] MEDS ORDERED: DOCUSATE SODIUM 100MG CAPSULE PO PRN (12:45)
[2024-03-08] MEDS ORDERED: ACETAMINOPHEN 325MG TABLET PO PRN ×2 (12:45)
[2024-03-08] MEDS ORDERED: ONDANSETRON HCL 4MG/2ML INJ IV PRN (12:45)
[2024-03-08] MEDS ORDERED: KETOROLAC 15MG/ML VIAL IV PRN (12:45)
[2024-03-08] MEDS ORDERED: CLONIDINE 0.1MG TABLET PO PRN (12:45)
[2024-03-08] MEDS ORDERED: GUAIFENESIN 200MG/10ML SUGAR FREE UDC PO PRN (12:45)
[2024-03-08] MEDS ORDERED: NITROGLYCERIN 0.4MG TABLET SL SL PRN (12:45)
[2024-03-08] MEDS: AMLODIPINE 5MG TABLET PO NR (13:21)
[2024-03-08 13:22] VITALS: BP 177/103; PULSE 88; RESP 20; TEMP 37.00296; O2SAT 99
[2024-03-08] MEDS: KCL 20MEQ/100ML PREMIX 100 ML IV SCH (13:30)
[2024-03-08] MEDS: MVI, ADULT NO.1 10 ML, FOLIC ACID 1 MG, THIAMINE HCL 100 MG in SODIUM CHLORIDE 0.9% 1,0... IV NR (13:30)
[2024-03-08 13:34] LABS: TROPONIN I HIGH SENSITIVITY 14 ng/L (3.0-34)
[2024-03-08] MEDS: ENOXAPARIN 40MG/0.4ML SYR SUBCUT SCH (14:00)
[2024-03-08] MEDS ORDERED: CHLORDIAZEPOXIDE 25MG CAPSULE PO SCH (14:00)
[2024-03-08] MEDS: CHLORDIAZEPOXIDE 5 MG CAPSULE PO SCH (14:00)
[2024-03-08 14:12] LABS: IRON 30 ug/dL (50-170)
[2024-03-08 14:14] LABS: TOTAL IRON BINDING CAPACITY 394 ug/dl (250-425)
[2024-03-08 14:19] LABS: T4 FREE 1.28 ng/dL (0.89-1.76)
[2024-03-08 14:20] LABS: THYROID STIMULATING HORMONE 2.63 uIU/mL (0.55-4.78)
[2024-03-08 14:27] LABS: ETHANOL BLOOD < 10 mg/dL (<10)
[2024-03-08 15:05] LABS: *AMPHETAMINES SCREEN URINE PRESUMPTIVE POSITIVE (NEGATIVE); *BARBITURATES SCREEN URINE NEGATIVE (NEGATIVE); *BENZODIAZEPINES SCREEN URINE PRESUMPTIVE POSITIVE (NEGATIVE); *COCAINE SCREEN URINE NEGATIVE (NEGATIVE); METHADONE URINE SCREEN NEGATIVE (NEGATIVE)
[2024-03-08 15:06] LABS: CANNABINOID URINE SCREEN NEGATIVE (NEGATIVE); ECSTASY MDMA SCREEN URINE CONF.TEST INDICATED (NEGATIVE); OPIATES URINE SCREEN NEGATIVE (NEGATIVE); PHENCYCLIDINE URINE SCREEN NEGATIVE (NEGATIVE)
[2024-03-08] MEDS: POTASSIUM CHLORIDE 20MEQ TABLET SR PO NR (16:32)
[2024-03-08] MEDS ORDERED: FAMOTIDINE 20MG TABLET PO SCH (21:00)
[2024-03-09] MEDS ORDERED: AMLODIPINE 10MG TABLET PO SCH (09:00)
[2024-03-09] MEDS ORDERED: ASPIRIN 81MG EC TABLET PO SCH (09:00)
[2024-03-09 16:52] LABS: FOLIC ACID (FOLATE) SERUM > 20.00 ng/mL (>5.38); VITAMIN B12 SERUM 565 pg/mL (211-911)
== END 2024-03-08 19:17 | disposition left against medical advice (07) ==
LOC: ER 10:07 → EDBEDREQ 11:33 → EDBEDREQTM 11:33 → ER 19:17
DX: F10.939 Alcohol use, unspecified with withdrawal, unspecified (principal); R07.89 Other chest pain; R42 Dizziness and giddiness; I10 Essential (primary) hypertension; F41.9 Anxiety disorder, unspecified; Z79.899 Other long term (current) drug therapy; Z86.59 Personal history of other mental and behavioral disorders; Y90.9 Presence of alcohol in blood, level not specified
CPT/HCPCS: 80076; 80305; 80048; 80320; 82607; 82746; 83036; 84703; 84439; 83540; 83550; 84443; 85025; 84484; 36415; 71045; 93970; 93005; 96365; 96366; 96375; 96376; 99291; J3360; J1650; J3475; J2405; J3411; J3480; J3490; J7030; G0480

== ENCOUNTER 2024-03-13 19:33 | Emergency (ER) | payer MEDICAID ==
[~2024-03-13] VITALS: Ht 162.6 cm; Wt 68.0 kg
[2024-03-13 19:34] VITALS: O2SAT 99
[2024-03-13] MEDS ORDERED: HYDR-459 MT (20:16)
[2024-03-13] MEDS: HYDROXYZINE 25MG TABLET PO ONE (21:00)
[2024-03-13 21:50] VITALS: BP 160/98; PULSE 94; RESP 19; TEMP 37.05852; O2SAT 100
== END 2024-03-13 21:51 | disposition home or self-care (01) ==
LOC: EDBD → ER 19:33
DX: F41.9 Anxiety disorder, unspecified (principal); I10 Essential (primary) hypertension; J45.909 Unspecified asthma, uncomplicated; F12.10 Cannabis abuse, uncomplicated; F20.9 Schizophrenia, unspecified; Z79.899 Other long term (current) drug therapy
CPT/HCPCS: 99283

== ENCOUNTER 2024-03-14 07:43 | Emergency (ER) | payer MEDICAID ==
[~2024-03-14] VITALS: Ht 162.6 cm; Wt 68.0 kg
[~2024-03-14 07:43] MED LIST changes: +HYDR-459 MT
[2024-03-14 07:46] VITALS: O2SAT 100
[2024-03-14 09:08] LABS: BASOPHILS % 0.6 % (0.0-2.0); EOSINOPHILS % 4.2 % (0.0-5.0); HEMATOCRIT. 33.1 % (36.0-48.0); HEMOGLOBIN. 11.1 g/dL (12.0-16.0); LYMPHOCYTES % 19.8 % (20.0-50.0); MEAN CORPUSCULAR HEMOGLOBIN 27.4 pg (28.0-32.0); MEAN CORPUSCULAR HGB CONC 33.6 g/dL (31.0-37.0); MEAN CORPUSCULAR VOLUME 81.4 fL (81.0-99.0); MEAN PLATELET VOLUME 8.3 fl (7.4-10.4); MONOCYTES % 10.1 % (2.0-8.0); NEUTROPHILS % 65.3 % (40.0-76.0); PLATELET 170 x1000/uL (130-400); RED BLOOD CELL COUNT 4.07 mill/uL (4.2-5.4); RED CELL DISTRIBUTION WIDTH 16.6 % (11.6-14.6); WHITE BLOOD COUNT 7.8 x1000/uL (4.5-11.0)
[2024-03-14 09:25] LABS: CHLORIDE 102 mEq/L (98-107); POTASSIUM 2.9 mEq/L (3.5-5.1); SODIUM 140 mEq/L (136-145)
[2024-03-14 09:26] LABS: CARBON DIOXIDE 31 mEq/L (21-32)
[2024-03-14 09:27] LABS: CALCIUM 9.4 mg/dL (8.7-10.4)
[2024-03-14 09:31] LABS: CREATININE 1.2 mg/dL (0.6-1.0); GLUCOSE 104 mg/dL (70-105); UREA NITROGEN BLOOD 20 mg/dL (9-23)
[2024-03-14 09:33] LABS: ALANINE AMINOTRANSFERASE 22 IU/L (10-49); ALBUMIN 3.9 g/dL (3.2-4.8); ASPARTATE AMINOTRANSFERASE 32 IU/L (<34)
[2024-03-14 09:34] LABS: BILIRUBIN TOTAL 1.3 mg/dL (0.1-1.0); PROTEIN TOTAL 6.8 g/dL (6.0-8.3)
[2024-03-14 09:54] LABS: ETHANOL BLOOD < 10 mg/dL (<10)
[2024-03-14 10:21] LABS: HCG SCREEN NEGATIVE
[2024-03-14] MEDS: POTASSIUM CHLORIDE 20MEQ TABLET SR PO ONE (11:00)
[2024-03-14 11:49] LABS: CLARITY URINE TURBID (CLEAR); COLOR URINE DARK YELLOW (YELLOW); GLUCOSE URINE NEGATIVE (NEGATIVE); KETONES URINE NEGATIVE (NEGATIVE); LEUKOCYTE ESTERASE URINE 3+ (NEGATIVE); NITRITE URINE NEGATIVE (NEGATIVE); OCCULT BLOOD URINE 1+ (NEGATIVE); PH URINE 6.5 (4.5-8.0); PROTEIN URINE 3+ (NEGATIVE); SPECIFIC GRAVITY URINE 1.014 (1.005-1.030)
[2024-03-14 12:06] LABS: *AMPHETAMINES SCREEN URINE PRESUMPTIVE POSITIVE (NEGATIVE); *BARBITURATES SCREEN URINE NEGATIVE (NEGATIVE); *BENZODIAZEPINES SCREEN URINE PRESUMPTIVE POSITIVE (NEGATIVE); *COCAINE SCREEN URINE NEGATIVE (NEGATIVE); CANNABINOID URINE SCREEN NEGATIVE (NEGATIVE); ECSTASY MDMA SCREEN URINE NEGATIVE (NEGATIVE); METHADONE URINE SCREEN NEGATIVE (NEGATIVE); OPIATES URINE SCREEN NEGATIVE (NEGATIVE); PHENCYCLIDINE URINE SCREEN NEGATIVE (NEGATIVE)
[2024-03-14 12:38] LABS: SQUAMOUS EPITHELIAL CELL URINE RARE /lpf (RARE/1+)
[2024-03-14 12:39] LABS: BACTERIA URINE 1+; WBC URINE TNTC /hpf (0-2)
[2024-03-14] MEDS: NITROFURANTOIN 100MG M/M CAPSULE PO SCH (14:16)
[2024-03-14 16:16] LABS: POTASSIUM 3.6 mEq/L (3.5-5.1)
[2024-03-14] MEDS: LORAZEPAM 1MG TABLET PO ONE (17:53)
[2024-03-15 08:00] VITALS: BP 138/74; PULSE 60; RESP 16; TEMP 36.94740; O2SAT 100
[2024-03-15] MEDS ORDERED: NITR100C PO (08:33)
== END 2024-03-15 09:57 | disposition home or self-care (01) ==
LOC: EDBD → ER 07:43
DX: F32.9 Major depressive disorder, single episode, unspecified (principal); R45.851 Suicidal ideations; N39.0 Urinary tract infection, site not specified; E87.6 Hypokalemia; F20.9 Schizophrenia, unspecified; J45.909 Unspecified asthma, uncomplicated; F41.9 Anxiety disorder, unspecified; Z79.899 Other long term (current) drug therapy; Z79.51 Long term (current) use of inhaled steroids; Z20.822 Contact with and (suspected) exposure to COVID-19
CPT/HCPCS: 36415; 80048; 80053; 80305; 80307; 80320; 80329; 81003; 81025; 84703; 85025; 87426; 93005; 99285; G0480

== ENCOUNTER 2024-03-15 10:24 | Emergency (ER) | payer MEDICAID ==
[~2024-03-15] VITALS: Ht 162.6 cm; Wt 59.0 kg
[~2024-03-15 10:24] MED LIST changes: +NITR100C PO
[2024-03-15 10:34] VITALS: O2SAT 100
[2024-03-15 12:08] LABS: BASOPHILS % 0.9 % (0.0-2.0); EOSINOPHILS % 7.5 % (0.0-5.0); HEMATOCRIT. 36.3 % (36.0-48.0); HEMOGLOBIN. 11.6 g/dL (12.0-16.0); LYMPHOCYTES % 24.6 % (20.0-50.0); MEAN CORPUSCULAR HEMOGLOBIN 26.7 pg (28.0-32.0); MEAN CORPUSCULAR VOLUME 83.4 fL (81.0-99.0); MEAN PLATELET VOLUME 8.4 fl (7.4-10.4); MONOCYTES % 6.6 % (2.0-8.0); NEUTROPHILS % 60.4 % (40.0-76.0); PLATELET 162 x1000/uL (130-400); RED BLOOD CELL COUNT 4.35 mill/uL (4.2-5.4); RED CELL DISTRIBUTION WIDTH 16.9 % (11.6-14.6); WHITE BLOOD COUNT 5.2 x1000/uL (4.5-11.0)
[2024-03-15 12:10] LABS: CHLORIDE 104 mEq/L (98-107); POTASSIUM 3.9 mEq/L (3.5-5.1); SODIUM 140 mEq/L (136-145)
[2024-03-15 12:11] LABS: CALCIUM 9.4 mg/dL (8.7-10.4); CARBON DIOXIDE 30 mEq/L (21-32)
[2024-03-15 12:16] LABS: CREATININE 0.9 mg/dL (0.6-1.0); GLUCOSE 132 mg/dL (70-105); UREA NITROGEN BLOOD 23 mg/dL (9-23)
[2024-03-15 12:27] LABS: ETHANOL BLOOD < 10 mg/dL (<10)
[2024-03-15 16:02] LABS: CLARITY URINE CLEAR (CLEAR); COLOR URINE YELLOW (YELLOW); GLUCOSE URINE NEGATIVE (NEGATIVE); KETONES URINE NEGATIVE (NEGATIVE); LEUKOCYTE ESTERASE URINE 2+ (NEGATIVE); NITRITE URINE NEGATIVE (NEGATIVE); OCCULT BLOOD URINE NEGATIVE (NEGATIVE); PH URINE 7.5 (4.5-8.0); PROTEIN URINE NEGATIVE (NEGATIVE); SPECIFIC GRAVITY URINE 1.016 (1.005-1.030)
[2024-03-15 16:33] LABS: *AMPHETAMINES SCREEN URINE PRESUMPTIVE POSITIVE (NEGATIVE); *BARBITURATES SCREEN URINE NEGATIVE (NEGATIVE); *BENZODIAZEPINES SCREEN URINE PRESUMPTIVE POSITIVE (NEGATIVE); *COCAINE SCREEN URINE NEGATIVE (NEGATIVE); METHADONE URINE SCREEN NEGATIVE (NEGATIVE)
[2024-03-15 16:34] LABS: CANNABINOID URINE SCREEN NEGATIVE (NEGATIVE); ECSTASY MDMA SCREEN URINE NEGATIVE (NEGATIVE); OPIATES URINE SCREEN NEGATIVE (NEGATIVE); PHENCYCLIDINE URINE SCREEN NEGATIVE (NEGATIVE)
[2024-03-15 17:09] LABS: BACTERIA URINE 1+; RBC URINE 0-2 /hpf (0-2); SQUAMOUS EPITHELIAL CELL URINE 1+ /lpf (RARE/1+); WBC URINE 15-25 /hpf (0-2)
[2024-03-16 06:55] VITALS: BP 140/82; PULSE 64; RESP 18; TEMP 36.61404; O2SAT 99
== END 2024-03-16 16:39 | disposition short-term general hospital (02) ==
LOC: ER 10:24
DX: R45.851 Suicidal ideations (principal); F12.10 Cannabis abuse, uncomplicated; J45.909 Unspecified asthma, uncomplicated; F41.9 Anxiety disorder, unspecified; I10 Essential (primary) hypertension; Z20.822 Contact with and (suspected) exposure to COVID-19; Z79.899 Other long term (current) drug therapy; Z86.59 Personal history of other mental and behavioral disorders
CPT/HCPCS: 36415; 80048; 80305; 80320; 81003; 85025; 87426; 99285; G0480

== ENCOUNTER 2024-07-18 01:15 | Emergency (ER) | payer MEDICAID ==
[~2024-07-18] VITALS: Ht 162.6 cm; Wt 68.0 kg
[2024-07-18 01:20] VITALS: BP 108/83; PULSE 94; RESP 16; TEMP 36.9; O2SAT 100
[2024-07-18] MEDS ORDERED: THIA100T72 PO (02:15)
[2024-07-18] MEDS ORDERED: FOLI-43 PO (02:15)
[2024-07-18] MEDS: LORAZEPAM 1MG TABLET PO ONE (03:01)
== END 2024-07-18 03:00 | disposition home or self-care (01) ==
LOC: ER 01:15
DX: F10.939 Alcohol use, unspecified with withdrawal, unspecified (principal); F19.10 Other psychoactive substance abuse, uncomplicated; Z79.899 Other long term (current) drug therapy; Z79.51 Long term (current) use of inhaled steroids; F41.9 Anxiety disorder, unspecified; J45.909 Unspecified asthma, uncomplicated; I10 Essential (primary) hypertension; F12.90 Cannabis use, unspecified, uncomplicated; F15.90 Other stimulant use, unspecified, uncomplicated; Y90.9 Presence of alcohol in blood, level not specified
CPT/HCPCS: 99283

== ENCOUNTER 2024-07-18 03:56 | Emergency (ER) | payer MEDICAID ==
[~2024-07-18] VITALS: Ht 162.6 cm; Wt 54.0 kg
[2024-07-18 04:36] VITALS: O2SAT 99
[2024-07-18] MEDS: IBUPROFEN 600MG TABLET PO STA (06:09)
[2024-07-18 06:27] LABS: BASOPHILS % 1.3 % (0.0-2.0); EOSINOPHILS % 3.2 % (0.0-5.0); HEMATOCRIT. 37.5 % (36.0-48.0); HEMOGLOBIN. 12.3 g/dL (12.0-16.0); LYMPHOCYTES % 43.7 % (20.0-50.0); MEAN CORPUSCULAR HEMOGLOBIN 27.6 pg (28.0-32.0); MEAN CORPUSCULAR VOLUME 83.9 fL (81.0-99.0); MEAN PLATELET VOLUME 7.6 fl (7.4-10.4); MONOCYTES % 6.9 % (2.0-8.0); NEUTROPHILS % 44.9 % (40.0-76.0); PLATELET 247 x1000/uL (130-400); RED BLOOD CELL COUNT 4.47 mill/uL (4.2-5.4); RED CELL DISTRIBUTION WIDTH 17.6 % (11.6-14.6); WHITE BLOOD COUNT 8.5 x1000/uL (4.5-11.0)
[2024-07-18 07:25] LABS: POTASSIUM 3.4 mEq/L (3.5-5.1)
[2024-07-18 07:26] LABS: CALCIUM 9.2 mg/dL (8.7-10.4)
[2024-07-18 07:52] VITALS: BP 143/78; PULSE 78; RESP 18; TEMP 36.9; O2SAT 99
== END 2024-07-18 08:05 | disposition home or self-care (01) ==
LOC: ER 03:56
DX: R42 Dizziness and giddiness (principal); R10.84 Generalized abdominal pain; F32.A Depression, unspecified; F41.9 Anxiety disorder, unspecified; I10 Essential (primary) hypertension; J45.909 Unspecified asthma, uncomplicated; F12.90 Cannabis use, unspecified, uncomplicated; F15.90 Other stimulant use, unspecified, uncomplicated; Z79.51 Long term (current) use of inhaled steroids; Z79.899 Other long term (current) drug therapy
CPT/HCPCS: 36415; 71045; 74018; 80048; 85025; 86850; 86900; 99284

== ENCOUNTER 2025-02-26 09:27 | Inpatient (IN) | payer MEDICAID ==
[~2025-02-26] VITALS: Ht 165.1 cm; Wt 72.6 kg
[2025-02-26] MEDS: METHYLPREDNISOLONE SOD SUCC 125MG/2ML (ACT-O-VIAL) IV ONE (09:56)
[2025-02-26 09:59] LABS: BASOPHILS % 2.5 % (0.0-2.0); EOSINOPHILS % 12.7 % (0.0-5.0); HEMATOCRIT. 40.0 % (36.0-48.0); HEMOGLOBIN. 13.0 g/dL (12.0-16.0); LYMPHOCYTES % 18.5 % (20.0-50.0); MEAN PLATELET VOLUME 7.7 fl (7.4-10.4); MONOCYTES % 5.1 % (2.0-8.0); NEUTROPHILS % 61.2 % (40.0-76.0); PLATELET 221 x1000/uL (130-400); RED BLOOD CELL COUNT 4.72 mill/uL (4.2-5.4); RED CELL DISTRIBUTION WIDTH 15.5 % (11.6-14.6)
[2025-02-26 10:00] VITALS: PULSE 84; RESP 20; O2SAT 98
[2025-02-26] MEDS: ALBUTEROL (0.083%) 2.5MG/3ML NEB HHN SCH (10:00)
[2025-02-26] MEDS: IPRATROPIUM BROMIDE (0.02%) 0.5MG/2.5ML NEB HHN SCH (10:00)
[2025-02-26 10:21] LABS: HCG SCREEN NEGATIVE
[2025-02-26 10:27] VITALS: PULSE 86; RESP 18
[2025-02-26 10:27] LABS: CREATININE 0.8 mg/dL (0.6-1.0); TROPONIN I HIGH SENSITIVITY < 4 ng/L (3.0-34); UREA NITROGEN BLOOD 14 mg/dL (9-23)
[2025-02-26 10:47] VITALS: PULSE 98; RESP 16
[2025-02-26 12:15] VITALS: BP 181/87; PULSE 99; RESP 18; TEMP 36.6404
[2025-02-26] MEDS ORDERED: ACETAMINOPHEN 325MG TABLET PO PRN (14:00)
[2025-02-26] MEDS ORDERED: ONDANSETRON HCL 4MG/2ML INJ IV PRN (14:00)
[2025-02-26] MEDS ORDERED: DOCUSATE SODIUM 100MG CAPSULE PO PRN (14:00)
[2025-02-26] MEDS ORDERED: GUAIFENESIN PO PRN (14:15)
[2025-02-26] MEDS: CLONIDINE 0.1MG TABLET PO PRN (14:20)
[2025-02-26 16:00] VITALS: BP 149/80; PULSE 95; RESP 18; TEMP 36.6; O2SAT 98
[2025-02-26] MEDS: GUAIFENESIN/DM 600MG/30MG ER TAB 12HR PO SCH (16:18)
[2025-02-26] MEDS: METHYLPREDNISOLONE SOD SUCC 40MG/ML (ACT-O-VIAL) IV SCH (17:44)
[2025-02-26 18:33] LABS: TROPONIN I HIGH SENSITIVITY < 4 ng/L (3.0-34)
[2025-02-26] MEDS: NICOTINE 7MG PATCH TD SCH (18:38)
[2025-02-26 20:00] VITALS: BP 144/92; PULSE 92; RESP 18; TEMP 36.2; O2SAT 98
[2025-02-26 21:06] LABS: INFLUENZA TYPE A Presumptive Negative (Pres. Neg.)
[2025-02-26 21:07] LABS: INFLUENZA TYPE B Presumptive Negative (Pres. Neg.)
[2025-02-26 21:08] LABS: RESPIRATORY SYNCYTIAL VIRUS Not Detected (Not Detectd)
[2025-02-26] MEDS: PREGABALIN 25MG CAPSULE PO SCH (21:50)
[2025-02-26] MEDS: OLANZAPINE 10MG TABLET PO SCH (21:50)
[2025-02-26] MEDS: HYDROXYZINE 25MG TABLET PO SCH (21:50)
[2025-02-26] MEDS: BUSPIRONE HCL 10MG TABLET PO SCH (21:50)
[2025-02-27] VITALS (9 sets, daily range): BP systolic 116–158; BP diastolic 72–95; PULSE 79–96; RESP 16–20; TEMP 36.2–36.7; O2SAT 92–98
[2025-02-27 06:30] LABS: BASOPHILS % 0.0 % (0.0-2.0); EOSINOPHILS % 0.0 % (0.0-5.0); HEMATOCRIT. 38.1 % (36.0-48.0); HEMOGLOBIN. 12.3 g/dL (12.0-16.0); LYMPHOCYTES % 7.6 % (20.0-50.0); MEAN PLATELET VOLUME 8.1 fl (7.4-10.4); MONOCYTES % 2.4 % (2.0-8.0); NEUTROPHILS % 90.0 % (40.0-76.0); PLATELET 210 x1000/uL (130-400); RED BLOOD CELL COUNT 4.56 mill/uL (4.2-5.4); RED CELL DISTRIBUTION WIDTH 15.4 % (11.6-14.6)
[2025-02-27 06:37] LABS: CREATININE 0.8 mg/dL (0.6-1.0); UREA NITROGEN BLOOD 13 mg/dL (9-23)
[2025-02-27 06:39] LABS: ASPARTATE AMINOTRANSFERASE 13 IU/L (<34); BILIRUBIN TOTAL 0.5 mg/dL (0.1-1.0); PROTEIN TOTAL 6.4 g/dL (6.0-8.3)
[2025-02-27] MEDS: PANTOPRAZOLE 40MG DR TABLET PO SCH (06:40)
[2025-02-27] MEDS: FOLIC ACID 1MG TABLET PO SCH (08:31)
[2025-02-27] MEDS: CITALOPRAM HYDROBROMIDE 10MG TABLET PO SCH (08:32)
[2025-02-27] MEDS: FERROUS SULFATE 325MG TABLET PO SCH (08:33)
[2025-02-27] MEDS: BACLOFEN 10MG TABLET PO SCH (08:34)
[2025-02-27] MEDS: LISINOPRIL 20MG TABLET PO SCH (08:34)
[2025-02-27] MEDS: THIAMINE HCL 100MG TABLET PO SCH (08:35)
[2025-02-27] MEDS: IPRATROPIUM/ALBUTEROL 0.5-3(2.5)MG/3ML NEB HHN PRN (09:16)
[2025-02-27] MEDS: ACETAMINOPHEN 325MG TABLET PO PRN (18:22)
[2025-02-27 19:54] LABS: *AMPHETAMINES SCREEN URINE PRESUMPTIVE POSITIVE (NEGATIVE); *BARBITURATES SCREEN URINE NEGATIVE (NEGATIVE); *BENZODIAZEPINES SCREEN URINE NEGATIVE (NEGATIVE); *COCAINE SCREEN URINE NEGATIVE (NEGATIVE); CANNABINOID URINE SCREEN NEGATIVE (NEGATIVE); METHADONE URINE SCREEN NEGATIVE (NEGATIVE); OPIATES URINE SCREEN NEGATIVE (NEGATIVE); PHENCYCLIDINE URINE SCREEN NEGATIVE (NEGATIVE)
[2025-02-27 19:55] LABS: ECSTASY MDMA SCREEN URINE NEGATIVE (NEGATIVE)
[2025-02-27] MEDS: IPRATROPIUM/ALBUTEROL 0.5-3(2.5)MG/3ML NEB HHN SCH (20:37)
[2025-02-27] MEDS: BUDESONIDE 0.5MG/2ML NEB HHN SCH (20:37)
[2025-02-28] VITALS (11 sets, daily range): BP systolic 119–138; BP diastolic 75–95; PULSE 76–93; RESP 16–20; TEMP 36.3–37.1; O2SAT 91–99
[2025-03-01] VITALS (11 sets, daily range): BP systolic 107–131; BP diastolic 77–92; PULSE 67–90; RESP 16–20; TEMP 35.9–36.7; O2SAT 93–98
[2025-03-01 06:31] LABS: CREATININE 0.7 mg/dL (0.6-1.0)
[2025-03-01 06:32] LABS: UREA NITROGEN BLOOD 18 mg/dL (9-23)
[2025-03-01 06:34] LABS: ASPARTATE AMINOTRANSFERASE 18 IU/L (<34); BILIRUBIN TOTAL 0.2 mg/dL (0.1-1.0); PROTEIN TOTAL 5.7 g/dL (6.0-8.3)
[2025-03-01 06:50] LABS: BASOPHILS % 1.1 % (0.0-2.0); EOSINOPHILS % 8.0 % (0.0-5.0); HEMATOCRIT. 34.3 % (36.0-48.0); HEMOGLOBIN. 11.1 g/dL (12.0-16.0); LYMPHOCYTES % 41.1 % (20.0-50.0); MEAN PLATELET VOLUME 8.3 fl (7.4-10.4); MONOCYTES % 5.8 % (2.0-8.0); NEUTROPHILS % 44.0 % (40.0-76.0); PLATELET 180 x1000/uL (130-400); RED BLOOD CELL COUNT 4.09 mill/uL (4.2-5.4); RED CELL DISTRIBUTION WIDTH 15.6 % (11.6-14.6)
[2025-03-01] MEDS ORDERED: ALBU18HF2 IH (13:25)
== END 2025-03-01 18:36 | disposition home or self-care (01) | DRG 141 ==
LOC: ER 09:27 → 8WST 10:44 → EDBEDREQ 10:49 → EDBEDREQTM 10:49
PROVIDERS: ADMIT Internal Medicine; ATTEND Internal Medicine
DX: J45.901 Unspecified asthma with (acute) exacerbation (principal); J96.01 Acute respiratory failure with hypoxia; F32.A Depression, unspecified; I10 Essential (primary) hypertension; F41.9 Anxiety disorder, unspecified; D72.824 Basophilia; K44.9 Diaphragmatic hernia without obstruction or gangrene; F15.90 Other stimulant use, unspecified, uncomplicated; F17.290 Nicotine dependence, other tobacco product, uncomplicated; Z79.899 Other long term (current) drug therapy
CPT/HCPCS: 36415; 71045; 80048; 80053; 80305; 83735; 84484; 84703; 85025; 87420; 87804; 93005; 94070; 94640; 94664; 98960; 99291; A4606; J2919; J7626

== ENCOUNTER 2025-03-28 07:54 | Emergency (ER) | payer MEDICAID ==
[~2025-03-28] VITALS: Ht 167.6 cm; Wt 64.0 kg
[~2025-03-28 07:54] MED LIST changes: -CHLO25CA10 MT; -NITR100C PO
[2025-03-28 07:55] VITALS: O2SAT 99
[2025-03-28] MEDS ORDERED: SULF1TAB48 MT (09:58)
[2025-03-28] MEDS ORDERED: MUPI15CR11 TP (09:58)
[2025-03-28] MEDS: TETANUS, DIPHTHERIA, PERTUSSIS VAC/PF 0.5ML (>10YR OLD) IM ONE (10:36)
[2025-03-28 10:37] VITALS: BP 128/86; PULSE 76; RESP 12; TEMP 36.7; O2SAT 99
[2025-03-28] MEDS ORDERED: ACET-2708 MT (14:36)
== END 2025-03-28 10:52 | disposition home or self-care (01) ==
LOC: ER 08:03
DX: S01.01XA Laceration without foreign body of scalp, initial encounter (principal); L03.011 Cellulitis of right finger; F32.A Depression, unspecified; F41.9 Anxiety disorder, unspecified; I10 Essential (primary) hypertension; J45.909 Unspecified asthma, uncomplicated; Z79.51 Long term (current) use of inhaled steroids; Z79.899 Other long term (current) drug therapy; Y04.0XXA Assault by unarmed brawl or fight, initial encounter; Y93.89 Activity, other specified; Y92.89 Other specified places as the place of occurrence of the external cause; Y99.8 Other external cause status
CPT/HCPCS: 90715; 90471; 99283; Z7610

== ENCOUNTER 2025-03-28 12:25 | Emergency (ER) | payer MEDICAID ==
[~2025-03-28] VITALS: Ht 165.1 cm; Wt 73.0 kg
[~2025-03-28 12:25] MED LIST changes: +MUPI15CR11 TP; +SULF1TAB48 MT
[2025-03-28 12:40] VITALS: TEMP 36.7; O2SAT 96
[2025-03-28] MEDS ORDERED: ACETAMINOPHEN 325MG TABLET PO ONE (14:30)
[2025-03-28] MEDS ORDERED: ACET-2708 MT (14:36)
[2025-03-28 16:50] VITALS: BP 119/85; PULSE 92; RESP 16; O2SAT 99
== END 2025-03-28 17:17 | disposition home or self-care (01) ==
LOC: ER 13:19
DX: R51.9 Headache, unspecified (principal); F32.A Depression, unspecified; F41.9 Anxiety disorder, unspecified; I10 Essential (primary) hypertension; J45.909 Unspecified asthma, uncomplicated; Z79.51 Long term (current) use of inhaled steroids; Z79.899 Other long term (current) drug therapy
CPT/HCPCS: 99282

== ENCOUNTER 2025-04-10 22:20 | Emergency (ER) | payer MEDICAID ==
[~2025-04-10] VITALS: Ht 165.1 cm; Wt 68.0 kg
[~2025-04-10 22:20] MED LIST changes: +ACET-2708 MT
[2025-04-10 23:14] LABS: BASOPHILS % 1.7 % (0.0-2.0); EOSINOPHILS % 4.3 % (0.0-5.0); HEMATOCRIT. 33.6 % (36.0-48.0); HEMOGLOBIN. 11.1 g/dL (12.0-16.0); LYMPHOCYTES % 28.6 % (20.0-50.0); MEAN PLATELET VOLUME 7.1 fl (7.4-10.4); MONOCYTES % 4.2 % (2.0-8.0); NEUTROPHILS % 61.2 % (40.0-76.0); PLATELET 436 x1000/uL (130-400); RED BLOOD CELL COUNT 4.28 mill/uL (4.2-5.4); RED CELL DISTRIBUTION WIDTH 17.1 % (11.6-14.6)
[2025-04-10 23:23] LABS: UREA NITROGEN BLOOD 14 mg/dL (9-23)
[2025-04-10 23:24] LABS: CREATININE 1.1 mg/dL (0.6-1.0)
[2025-04-10 23:25] LABS: ETHANOL BLOOD 30 mg/dL (<10)
[2025-04-10 23:26] LABS: ASPARTATE AMINOTRANSFERASE 32 IU/L (<34); BILIRUBIN DIRECT 0.1 mg/dL (<=3.0); BILIRUBIN TOTAL 0.3 mg/dL (0.1-1.0)
[2025-04-10 23:29] LABS: PROTEIN TOTAL 8.4 g/dL (6.0-8.3)
[2025-04-10] MEDS: BUSPIRONE HCL 10MG TABLET PO ONE (23:44)
[2025-04-10] MEDS: OLANZAPINE 5MG TABLET ODT PO ONE (23:44)
[2025-04-11 04:10] LABS: CLARITY URINE CLEAR (CLEAR); COLOR URINE YELLOW (YELLOW); GLUCOSE URINE NEGATIVE (NEGATIVE); KETONES URINE NEGATIVE (NEGATIVE); LEUKOCYTE ESTERASE URINE 2+ (NEGATIVE); NITRITE URINE NEGATIVE (NEGATIVE); OCCULT BLOOD URINE NEGATIVE (NEGATIVE); PH URINE 6.0 (4.5-8.0); PROTEIN URINE NEGATIVE (NEGATIVE); SPECIFIC GRAVITY URINE 1.015 (1.005-1.030); UROBILINOGEN URINE 0.2 E.U./dL (0.2-1.0)
[2025-04-11 04:26] LABS: *AMPHETAMINES SCREEN URINE PRESUMPTIVE POSITIVE (NEGATIVE); *BARBITURATES SCREEN URINE NEGATIVE (NEGATIVE); *BENZODIAZEPINES SCREEN URINE PRESUMPTIVE POSITIVE (NEGATIVE); *COCAINE SCREEN URINE NEGATIVE (NEGATIVE); CANNABINOID URINE SCREEN NEGATIVE (NEGATIVE); ECSTASY MDMA SCREEN URINE CONF.TEST INDICATED (NEGATIVE); METHADONE URINE SCREEN NEGATIVE (NEGATIVE); OPIATES URINE SCREEN NEGATIVE (NEGATIVE); PHENCYCLIDINE URINE SCREEN NEGATIVE (NEGATIVE)
[2025-04-11 05:00] LABS: SQUAMOUS EPITHELIAL CELL URINE 1+ /lpf (RARE/1+)
[2025-04-11 05:02] LABS: BACTERIA URINE TRACE; RBC URINE 0-2 /hpf (0-2)
[2025-04-11] MEDS ORDERED: HYDROXYZINE 25MG TABLET PO PRN (09:45)
[2025-04-11] MEDS ORDERED: DEXAMETHASONE 1MG TABLET PO ONE (13:45)
[2025-04-11] MEDS: DEXAMETHASONE 4MG TABLET PO SCH (14:00)
[2025-04-11 14:32] VITALS: PULSE 79; RESP 16; O2SAT 98
[2025-04-11] MEDS: ALBUTEROL (0.083%) 2.5MG/3ML NEB HHN SCH (14:32)
[2025-04-11] MEDS: IPRATROPIUM BROMIDE (0.02%) 0.5MG/2.5ML NEB HHN SCH (14:32)
[2025-04-11 14:42] VITALS: PULSE 86; RESP 16; O2SAT 99
[2025-04-11 14:52] VITALS: PULSE 76; RESP 18; O2SAT 99
[2025-04-11 17:54] VITALS: BP 156/88; PULSE 82; RESP 18; TEMP 37.1; O2SAT 99
[2025-04-11] MEDS ORDERED: OLANZAPINE 5MG TABLET ODT PO SCH (21:00)
== END 2025-04-11 18:00 ==
LOC: ER 22:20
DX: R44.1 Visual hallucinations (principal); R44.0 Auditory hallucinations; F31.9 Bipolar disorder, unspecified; F41.9 Anxiety disorder, unspecified; I10 Essential (primary) hypertension; J45.909 Unspecified asthma, uncomplicated; F15.10 Other stimulant abuse, uncomplicated; Z20.822 Contact with and (suspected) exposure to COVID-19
CPT/HCPCS: 80076; 80048; 80307; 80329; 80320; 85025; 36415; 93005; 99291; 80305; 81003; 94640; 87426; J8540; Z7610 ×3; 94070; 94664; 99285; G0480

== ENCOUNTER 2025-05-09 11:04 | Inpatient (IN) | payer MEDICAID ==
[~2025-05-09] VITALS: Ht 160 cm; Wt 66.7 kg
[2025-05-09 11:05] VITALS: O2SAT 98
[2025-05-09] MEDS: ACETAMINOPHEN 500MG TABLET PO ONE (12:19)
[2025-05-09 12:24] LABS: BASOPHILS % 0.8 % (0.0-2.0); EOSINOPHILS % 0.5 % (0.0-5.0); HEMATOCRIT. 25.5 % (36.0-48.0); HEMOGLOBIN. 7.9 g/dL (12.0-16.0); LYMPHOCYTES % 15.7 % (20.0-50.0); MEAN PLATELET VOLUME 6.9 fl (7.4-10.4); MONOCYTES % 9.0 % (2.0-8.0); NEUTROPHILS % 74.0 % (40.0-76.0); PLATELET 266 x1000/uL (130-400); RED BLOOD CELL COUNT 3.47 mill/uL (4.2-5.4); RED CELL DISTRIBUTION WIDTH 18.2 % (11.6-14.6)
[2025-05-09 12:29] LABS: CLARITY URINE CLEAR (CLEAR); COLOR URINE YELLOW (YELLOW); GLUCOSE URINE NEGATIVE (NEGATIVE); KETONES URINE TRACE (NEGATIVE); LEUKOCYTE ESTERASE URINE 1+ (NEGATIVE); NITRITE URINE NEGATIVE (NEGATIVE); OCCULT BLOOD URINE NEGATIVE (NEGATIVE); PH URINE 5.5 (4.5-8.0); PROTEIN URINE NEGATIVE (NEGATIVE); SPECIFIC GRAVITY URINE 1.018 (1.005-1.030); UROBILINOGEN URINE 0.2 E.U./dL (0.2-1.0)
[2025-05-09 12:37] LABS: CREATININE 1.2 mg/dL (0.6-1.0)
[2025-05-09 12:38] LABS: UREA NITROGEN BLOOD 15 mg/dL (9-23)
[2025-05-09 12:39] LABS: PROTEIN TOTAL 6.7 g/dL (6.0-8.3); TROPONIN I HIGH SENSITIVITY 14 ng/L (3.0-34)
[2025-05-09 12:40] LABS: ASPARTATE AMINOTRANSFERASE 50 IU/L (<34); BILIRUBIN DIRECT 0.2 mg/dL (<=3.0); BILIRUBIN TOTAL 0.5 mg/dL (0.1-1.0)
[2025-05-09 12:50] LABS: *AMPHETAMINES SCREEN URINE PRESUMPTIVE POSITIVE (NEGATIVE)
[2025-05-09 12:52] LABS: *BARBITURATES SCREEN URINE NEGATIVE (NEGATIVE); *BENZODIAZEPINES SCREEN URINE PRESUMPTIVE POSITIVE (NEGATIVE); *COCAINE SCREEN URINE NEGATIVE (NEGATIVE); CANNABINOID URINE SCREEN NEGATIVE (NEGATIVE); ECSTASY MDMA SCREEN URINE CONF.TEST INDICATED (NEGATIVE); METHADONE URINE SCREEN NEGATIVE (NEGATIVE); OPIATES URINE SCREEN NEGATIVE (NEGATIVE); PHENCYCLIDINE URINE SCREEN NEGATIVE (NEGATIVE)
[2025-05-09 13:07] LABS: RBC URINE 0-2 /hpf (0-2); WBC URINE 0-2 /hpf (0-2)
[2025-05-09 13:09] LABS: BACTERIA URINE TRACE; SQUAMOUS EPITHELIAL CELL URINE RARE /lpf (RARE/1+)
[2025-05-09 15:07] LABS: TROPONIN I HIGH SENSITIVITY 12 ng/L (3.0-34)
[2025-05-09] MEDS: SODIUM CHLORIDE 0.9% 1,000 ML IV ONE (16:25)
[2025-05-09] MEDS: KCL 10MEQ/50ML PREMIX 50 ML IV SCH (16:25)
[2025-05-09 18:10] VITALS: BP 130/65; PULSE 90; RESP 20; TEMP 37; O2SAT 99
[2025-05-09 20:00] VITALS: BP 121/65; PULSE 85; RESP 19; TEMP 36.8; O2SAT 97
[2025-05-10] VITALS (7 sets, daily range): BP systolic 104–162; BP diastolic 53–81; PULSE 65–108; RESP 18–20; TEMP 36.1–37.0296; O2SAT 96–99
[2025-05-10] MEDS: HYDROCODONE/ACETAMINOPHEN 10/325MG TABLET PO PRN (00:04)
[2025-05-10 06:28] LABS: BASOPHILS % 1.0 % (0.0-2.0); EOSINOPHILS % 7.1 % (0.0-5.0); HEMATOCRIT. 24.0 % (36.0-48.0); HEMOGLOBIN. 7.5 g/dL (12.0-16.0); LYMPHOCYTES % 26.9 % (20.0-50.0); MEAN PLATELET VOLUME 7.4 fl (7.4-10.4); MONOCYTES % 10.5 % (2.0-8.0); NEUTROPHILS % 54.5 % (40.0-76.0); PLATELET 237 x1000/uL (130-400); RED BLOOD CELL COUNT 3.22 mill/uL (4.2-5.4); RED CELL DISTRIBUTION WIDTH 17.9 % (11.6-14.6)
[2025-05-10 06:37] LABS: CREATININE 0.8 mg/dL (0.6-1.0); TRIGLYCERIDE 73 mg/dL (0-150); UREA NITROGEN BLOOD 9 mg/dL (9-23)
[2025-05-10 06:38] LABS: LDL CHOLESTEROL 48 mg/dL (5-100)
[2025-05-10] MEDS: CITALOPRAM HYDROBROMIDE 10MG TABLET PO SCH (10:24)
[2025-05-10] MEDS: PREGABALIN 25MG CAPSULE PO SCH (10:24)
[2025-05-10] MEDS: LISINOPRIL 20MG TABLET PO SCH (10:25)
[2025-05-10] MEDS: OLANZAPINE 10MG TABLET PO SCH (10:25)
[2025-05-10] MEDS ORDERED: KETOROLAC 30MG/ML VIAL IV PRN (12:00)
[2025-05-10] MEDS ORDERED: NALOXONE HCL 0.4MG/ML VIAL IV PRN (12:00)
[2025-05-10] MEDS: POTASSIUM CHLORIDE 20MEQ TABLET SR PO SCH (12:40)
[2025-05-10] MEDS ORDERED: NITROGLYCERIN 0.4MG TABLET SL SL PRN (20:30)
[2025-05-10] MEDS: GUAIFENESIN-DM 200MG-20MG/10ML UDC PO PRN (21:41)
[2025-05-11] VITALS: BP 132/76; PULSE 92; RESP 19; TEMP 36.4; O2SAT 98
[2025-05-11 04:00] VITALS: BP 131/88; PULSE 80; RESP 19; TEMP 36.4; O2SAT 97
[2025-05-11] MEDS ORDERED: IPRATROPIUM/ALBUTEROL 0.5-3(2.5)MG/3ML NEB HHN PRN (06:00)
[2025-05-11 08:00] VITALS: BP 130/78; PULSE 81; RESP 18; TEMP 36.2; O2SAT 99
[2025-05-11 12:00] VITALS: BP 113/79; PULSE 68; RESP 20; TEMP 36.1; O2SAT 100
[2025-05-11 13:25] LABS: CREATININE 0.7 mg/dL (0.6-1.0); UREA NITROGEN BLOOD 6 mg/dL (9-23)
[2025-05-11 13:53] VITALS: BP 113/79; PULSE 67; RESP 20; TEMP 97
[2025-05-11 16:00] VITALS: BP 120/79; PULSE 69; RESP 20; TEMP 36.2; O2SAT 98
== END 2025-05-11 16:35 | disposition home or self-care (01) | DRG 425 ==
LOC: ER 11:04 → EDBEDREQTM 16:55 → EDBEDREQ 16:55 → ENRESERV 17:10 → 7WST 18:22
PROVIDERS: ADMIT Internal Medicine; ATTEND Internal Medicine
DX: E87.6 Hypokalemia (principal); D64.9 Anemia, unspecified; I11.9 Hypertensive heart disease without heart failure; J45.909 Unspecified asthma, uncomplicated; F20.9 Schizophrenia, unspecified; R51.9 Headache, unspecified; F31.9 Bipolar disorder, unspecified; F41.9 Anxiety disorder, unspecified; F17.210 Nicotine dependence, cigarettes, uncomplicated; Z79.899 Other long term (current) drug therapy
CPT/HCPCS: 36415; 71045; 80048; 80061; 80076; 80305; 81003; 83036; 84484; 85025; 99285; J3480; J7030